=== PATIENT | female | born 1960 | race Caucasian/White ===

== ENCOUNTER 2018-08-28 13:22 | Inpatient (IN) | payer OTHER ==
[2018-08-28] MEDS ORDERED: MAG HYDROX/AL HYDROX/SIMETH 30 ML UDCUP PO ONE (13:52)
[2018-08-28] MEDS ORDERED: HYOSCYAMINE SULFATE 0.125 MG TAB PO ONE (13:52)
[2018-08-28] MEDS ORDERED: LIDOCAINE 2% VISCOUS 15 ML UDCUP PO ONE (13:52)
--- NOTE | 2018-08-28 13:52 | EDPHY ---
H & P Stated Complaint: abd pain Time Seen by Provider: 08/28/18 13:34 HPI/ROS: CHIEF COMPLAINT: Abdominal pain, nausea HISTORY OF PRESENT ILLNESS: 58-year-old female presents with upper abdominal pain and nausea. Yesterday while eating, she developed severe epigastric pain, associated with nausea. The pain waxed and waned and radiated to the back. The pain lasted approximately 5 min and then completely resolved. Onset of recurrent severe pain 1 hr ago, now resolved. No other assoc sx and no alleviating factors. No prior known history of gallstones and no peptic ulcer disease. REVIEW OF SYSTEMS: complete 10 point ROS reviewed and is negative except for the noted elements in the HPI - Personal History Current Tetanus Diphtheria and Acellular Pertussis (TDAP): Yes - Medical/Surgical History Hx Asthma: No Hx Chronic Respiratory Disease: No Hx Diabetes: No Hx Cardiac Disease: No Hx Renal Disease: No Hx Cirrhosis: No Hx Alcoholism: No Hx HIV/AIDS: No Hx Splenectomy or Spleen Trauma: No Other PMH: R foot lymphedema, depression, seizures - Social History Smoking Status: Never smoked Alcohol Use: Occasionally Drug Use: None - Physical Exam Exam: General Appearance: Alert, pleasant Eyes: Pupils equal and round, no conjunctival pallor or injection ENT, Mouth: Mucous membranes moist Neck: Normal inspection Respiratory: Lungs are clear to auscultation Cardiovascular: Regular rate and rhythm Gastrointestinal: Abdomen is soft, epigastric tenderness, no peritoneal signs Neurological: A&O, nonfocal, normal gait Skin: Warm and dry Extremities: Normal inspection Psychiatric: Mood and affect normal Constitutional: Initial Vital Signs Temperature (C) 36.6 C 08/28/18 13:37 Heart Rate 63 08/28/18 13:37 Respiratory Rate 16 08/28/18 13:37 Blood Pressure 104/81 H 08/28/18 13:37 O2 Sat (%) 96 08/28/18 13:37 O2 Delivery Mode Room Air Allergies/Adverse Reactions: Penicillins Allergy (Verified 08/29/18 10:17) Hives Home Medications: Medication Instructions Recorded Phenytoin Sodium Extended 200 mg PO DAILY 08/28/18 [Dilantin (*)] SUMAtriptan [Imitrex 25 MG (*)] 25 mg PO Q2H PRN 08/28/18 Venlafaxine Xr [Effexor Xr 75MG 75 mg PO DAILY 08/28/18 (*)] Medical Decision Making - Diagnostics Imaging: Discussed imaging studies w/ call or contact centre manager Radiologist ED Course/Re-evaluation: This patient presents with recurrent epigastric pain and nausea, most concerning for biliary colic. Labs and right upper quadrant ultrasound ordered. Sono reveals multiple gallstones, including a stone in the neck of the gallbladder and a distal common bile duct stone. Results discussed with the patient. She currently has minimal discomfort and no nausea. No evidence of cholecystitis. Dr. Brannon was consulted for ERCP. Dr. Pavon was consulted as well. The hospitalist service was consulted for admission. Differential Diagnosis: Differential diagnosis includes though it is not limited to appendicitis, cholecystitis, diverticulitis, pyelonephritis, bowel perforation, small bowel obstruction. - Data Points Laboratory Results: Laboratory Results 08/28/18 13:30 08/28/18 13:30 Medications Given: Acetaminophen (Tylenol) 650 mg PO Q4HRS PRN PRN Reason: Pain, Mild/Fever, Can Take PO Stop: 02/24/19 15:13 Last Admin: 08/31/18 21:20 Dose: 650 mg Enoxaparin Sodium (Lovenox) 40 mg SC DAILY [facility] Stop: 02/27/19 08:59 Last Admin: 08/31/18 08:44 Dose: 40 mg Hydromorphone HCl (Dilaudid Slabber) 0 mg IV PRN PRN; Protocol PRN Reason: Pain, Severe Unable to Take PO Stop: 09/09/18 15:43 Last Admin: 08/31/18 18:54 Dose: 6 mg Levofloxacin/Dextrose (Levaquin 750 Mg (Premix)) 150 mls @ 100 mls/hr IV DAILY ANGIE PRN Reason: Protocol Stop: 09/28/18 08:59 Last Admin: 08/31/18 08:54 Dose: 150 mls Metronidazole/Sodium Chloride (Flagyl 500 Mg (Premix)) 100 mls @ 100 mls/hr IV Q8H ANGIE PRN Reason: Protocol Stop: 09/28/18 19:59 Last Admin: 08/31/18 19:20 Dose: 100 mls Potassium Chloride/Dextrose/Sod Cl (D5w 1/2 Ns W/ 20 Kcl/L) 1,000 mls @ 75 mls/ hr IV CONT ANGIE Stop: 02/26/19 08:14 Last Admin: 08/31/18 18:20 Dose: 1,000 mls Ondansetron HCl (Zofran) 4 mg IVP Q4HRS PRN PRN Reason: Nausea/Vomiting, Can't Take PO Stop: 02/24/19 15:13 Last Admin: 08/31/18 19:19 Dose: 4 mg Ondansetron HCl (Zofran Odt) 4 mg PO Q4HRS PRN PRN Reason: Nausea/Vomiting, Use 1st Stop: 02/24/19 15:13 Last Admin: 08/30/18 03:57 Dose: 4 mg Oxycodone HCl (Oxycodone Ir) 5 - 10 mg PO Q3HRS PRN PRN Reason: Pain, Severe Able to Take PO Stop: 09/09/18 08:51 Last Admin: 08/30/18 10:39 Dose: 5 mg Pantoprazole Sodium (Protonix) 40 mg PO BID [facility] Stop: 02/27/19 20:59 Last Admin: 08/31/18 21:11 Dose: 40 mg Phenytoin Sodium (Dilantin) 200 mg PO DAILY [facility] Stop: 02/25/19 08:59 Last Admin: 08/31/18 08:45 Dose: 200 mg Senna/Docusate Sodium (Senokot-S) 1 - 2 tab PO BID ANGIE PRN Reason: Protocol Stop: 02/26/19 20:59 Last Admin: 08/31/18 21:12 Dose: 2 tab Venlafaxine HCl (Effexor Xr) 75 mg PO DAILY [facility] Stop: 02/25/19 08:59 Last Admin: 08/31/18 08:45 Dose: 75 mg Discontinued Medications Al Hydroxide/Mg Hydroxide (Maalox Susp) 30 ml PO ONCE ONE Stop: 08/28/18 13:53 Last Admin: 08/28/18 14:33 Dose: 30 ml Bupivacaine HCl (Sensorcaine 0.25% Sdv) Confirm Administered Dose 30 ml .ROUTE .STK-MED ONE Stop: 08/29/18 09:41 Last Admin: 08/29/18 13:11 Dose: 30 ml Epinephrine HCl (Epinephrine) Confirm Administered Dose 1 mg .ROUTE .STK-MED ONE Stop: 08/29/18 09:41 Last Admin: 08/29/18 13:10 Dose: 0.15 mg Fentanyl (Sublimaze) 25 - 100 mcg IVP Q5M PRN PRN Reason: PACU, IMMEDIATE Pain control Stop: 08/29/18 15:04 Last Admin: 08/29/18 15:09 Dose: 25 mcg Hydromorphone HCl (Dilaudid) 0.2 mg IVP Q4 PRN PRN Reason: Pain, Severe Unable to Take PO Stop: 09/07/18 15:16 Last Admin: 08/30/18 06:19 Dose: 0.2 mg Hydromorphone HCl (Dilaudid) 0.5 - 1 mg IVP Q2HRS PRN PRN Reason: Pain, Severe Stop: 09/09/18 08:51 Last Admin: 08/30/18 15:41 Dose: 1 mg Hyoscyamine Sulfate (Levsin, Hyomax-Sl) 0.25 mg PO ONCE ONE Stop: 08/28/18 13:53 Last Admin: 08/28/18 14:33 Dose: 0.25 mg Sodium Chloride (Ns) 1,000 mls @ 125 mls/hr IV CONT ANGIE Stop: 02/24/19 15:59 Last Admin: 08/29/18 00:38 Dose: 1,000 mls Metronidazole/Sodium Chloride (Flagyl 500 Mg (Premix)) 100 mls @ 100 mls/hr IV Q8HRS ANGIE PRN Reason: Protocol Stop: 09/28/18 08:44 Last Admin: 08/29/18 19:24 Dose: Not Given Sodium Chloride (Ns) 1,000 mls @ 3,000 mls/hr IV ONCE ONE Stop: 08/29/18 08:51 Last Admin: 08/29/18 08:45 Dose: 1,000 mls Lactated Ringer's (Lr) 1,000 mls @ 0 mls/hr IV ONCE ONE PRN Reason: As Directed Stop: 08/29/18 10:45 Last Admin: 08/29/18 10:52 Dose: 1,000 mls Iopamidol (Isovue-M 300) Confirm Administered Dose 15 ml .ROUTE .STK-MED ONE Stop: 08/29/18 09:41 Last Admin: 08/29/18 13:28 Dose: Not Given Lidocaine (Lidocaine 2% Viscous) 15 ml PO ONCE ONE Stop: 08/28/18 13:53 Last Admin: 08/28/18 14:33 Dose: 15 ml Ondansetron HCl (Zofran) 2 - 4 mg IVP Q10M PRN PRN Reason: PACU, Nausea/Vomiting Stop: 08/29/18 15:04 Last Admin: 08/29/18 14:12 Dose: 4 mg Pantoprazole Sodium (Protonix) 40 mg IVP BID ANGIE Stop: 02/24/19 20:59 Last Admin: 08/31/18 08:26 Dose: 40 mg Promethazine HCl (Phenergan) 6.25 - 12.5 mg IVP Q5M PRN PRN Reason: PACUNausea/Vomiting, Unable PO Stop: 08/29/18 15:04 Last Admin: 08/29/18 14:25 Dose: 6.25 mg Departure - Departure Disposition: Home, Routine, Self-Care Clinical Impression: Common bile duct stone Condition: Fair
[2018-08-28 14:01] LABS: PLATELET COUNT 296 10^3/uL (150-400)
[2018-08-28] MEDS ORDERED: MAG HYDROX/AL HYDROX/SIMETH 30 ML UDCUP PO PRN (15:18)
--- NOTE | 2018-08-28 16:07 | PDGENHP ---
<Arabella Salomon - Last Filed: 08/28/18 16:50> History and Physical - Chief Complaint Epigastric pain - History of Present Illness This is a 58 y/o female with history of depression and seizures presenting with severe abdominal pain and nausea. Onset was yesterday. It is episodic in its presentation. Yesterday evening, she was eating carrots with ranch dressing when she suddenly experienced severe epigastric pain that radiated to her back. She was also nauseous, no vomiting. Pain was described as throbbing. It resolved within 5 minutes. Today, she had another episode this time it lasted approximately 10 minutes with nausea and dry heaving. This too then resolved. Denies chest pains, shortness of breath, dysuria, diarrhea, constipation. Abdominal ultrasound reveal cholelithiasis with stones at the neck of the gallbladder measuring 8.7 mm, within the gallbladder, and at the distal aspect of the common bile duct near pancreatic head measuring 5 mm. She is being admitted for further diagnostic work-up. Past Medical/Surgical History 1. Right foot lymphedema (reports having since she was a child) 2. Depression 3. Seizures (last event was ~10-12 years ago) Social 1. , lives in [place] 2. 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 Denies tobacco or illicit drug use. Rarely drinks alcohol. 4. Diet consists of: hardboiled eggs, salad with chicken, "tons" of carrots with ranch dressing and a bag of low-salt popcorn. She also has 4 cups of coffee/day. History Information - Allergies/Home Medication List Allergies/Adverse Reactions: Penicillins Allergy (Verified 08/28/18 15:21) Hives Home Medications: Phenytoin Sodium Extended [Dilantin (*)] 200 mg PO DAILY 08/28/18 [Last Taken ] SUMAtriptan [Imitrex 25 MG (*)] 25 mg PO Q2H PRN 08/28/18 [Last Taken 3 Weeks Ago ~08/07/18] Venlafaxine Xr [Effexor Xr 75MG (*)] 75 mg PO DAILY 08/28/18 [Last Taken ] I have personally reviewed and updated: family history, medical history, social history, surgical history Past Medical History: See HPI list - Surgical History Additional surgical history: See HPI list - Family History Positive for: non-pertinent - Social History Smoking Status: Never smoked Alcohol Use: Rarely Drug Use: None Review of Systems Review of Systems: ROS: 10pt was reviewed & negative except for what was stated in HPI & below Constitutional: Reports: malaise (Reports nausea for 5 days straight last week) EENMT: Reports: no symptoms Cardiac: Reports: no symptoms Respiratory: Reports: no symptoms Gastrointestinal: Reports: abdominal pain, nausea Genitourinary: Reports: no symptoms Muscolosketal: Reports: back pain Skin: Reports: no symptoms Neurological: Reports: depressed (Medicated) Hematologic/Lymphatic: Reports: no symptoms Immunologic/Allergy: Reports: other (See allergy list) Physical Exam Physical Exam: Lab data and imaging reviewed Temp Pulse Resp BP Pulse Ox 37 C 65 16 106/71 98 08/28/18 16:00 08/28/18 16:00 08/28/18 16:00 08/28/18 16:00 08/28/18 16:00 Constitutional: no apparent distress, appears nourished, not in pain Eyes: PERRL, anicteric sclera, EOMI Ears, Nose, Mouth, Throat: moist mucous membranes, hearing normal, ears appear normal, no oral mucosal ulcers Cardiovascular: regular rate and rhythym, no murmur, rub, or gallop, No edema Peripheral Pulses: 2+: dorsalis-pedis (R) (Radial 2+), dorsalis-pedis (L) ( Radial 2+) Respiratory: no respiratory distress, no rales or rhonchi, clear to auscultation Gastrointestinal: normoactive bowel sounds, soft, non-tender abdomen, no palpable masses Genitourinary: no bladder fullness, no bladder tenderness Skin: warm, normal color, no rashes or abrasions, no fluctuance, no induration, No mottled Musculoskeletal: full muscle strength, no muscle tenderness, normal joint ROM, no joint effusions Neurologic: AAOx3, sensation intact bilaterally, CN II-XII Intact Psychiatric: interacting appropriately, not anxious, not encephalopathic, thought process linear Lymph, Heme, Immunologic: no cervical LAD, no supraclavicular LAD Lab Data & Imaging Review 08/28/18 13:30 08/28/18 13:30 WBC 4.64 10^3/uL (3.80-9.50) 08/28/18 13:30 RBC 4.81 10^6/uL (4.18-5.33) 08/28/18 13:30 Hgb 15.3 g/dL (12.6-16.3) 08/28/18 13:30 Hct 43.6 % (38.0-47.0) 08/28/18 13:30 MCV 90.6 fL (81.5-99.8) 08/28/18 13:30 MCH 31.8 pg (27.9-34.1) 08/28/18 13: MCHC 35.1 g/dL (32.4-36.7) 08/28/18 13: RDW 11.8 % (11.5-15.2) 08/28/18 13: Plt Count 296 10^3/uL (150-400) 08/28/18 13: MPV 9.0 fL (8.7-11.7) 08/28/18 13:30 Neut % (Auto) 50.6 % (39.3-74.2) 08/28/18 13:30 Lymph % (Auto) 41.4 % (15.0-45.0) 08/28/18 13:30 [place] % (Auto) 6.0 % (4.5-13.0) 08/28/18 13:30 Eos % (Auto) 0.9 % (0.6-7.6) 08/28/18 13: Baso % (Auto) 0.9 % (0.3-1.7) 08/28/18 13: Nucleat RBC Rel Count 0.0 % (0.0-0.2) 08/28/18 13:30 Absolute Neuts (auto) 2.35 10^3/uL (1.70-6.50) 08/28/18 13:30 Absolute Lymphs (auto) 1.92 10^3/uL (1.00-3.00) 08/28/18 13:30 Absolute Monos (auto) 0.28 10^3/uL (0.30-0.80) L 08/28/18 13:30 Absolute Eos (auto) 0.04 10^3/uL (0.03-0.40) 08/28/18 13:30 Absolute Basos (auto) 0.04 10^3/uL (0.02-0.10) 08/28/18 13:30 Absolute Nucleated RBC 0.00 10^3/uL (0-0.01) 08/28/18 13:30 Immature Gran % 0.2 % (0.0-1.1) 08/28/18 13:30 Immature Gran # 0.01 10^3/uL (0.00-0.10) 08/28/18 13:30 Sodium 139 mEq/L (135-145) 08/28/18 13:30 Potassium 4.4 mEq/L (3.5-5.2) 08/28/18 13:30 Chloride 104 mEq/L (97-110) 08/28/18 13:30 Carbon Dioxide 26 mEq/l (22-31) 08/28/18 13:30 Anion Gap 9 mEq/L (6-14) 08/28/18 13:30 BUN 14 mg/dL (7-23) 08/28/18 13:30 Creatinine 0.6 mg/dL (0.6-1.0) 08/28/18 13:30 Estimated GFR > 60 08/28/18 13:30 Glucose 101 mg/dL (70-100) H 08/28/18 13:30 Calcium 10.8 mg/dL (8.5-10.4) H 08/28/18 13:30 Phosphorus 3.4 mg/dL (2.5-4.5) 08/28/18 13:30 Total Bilirubin 0.3 mg/dL (0.1-1.4) 08/28/18 13:30 Conjugated Bilirubin 0.2 mg/dL (0.0-0.5) 08/28/18 13:30 Unconjugated Bilirubin 0.1 mg/dL (0.0-1.1) 08/28/18 13:30 AST 63 IU/L (14-46) H 08/28/18 13:30 ALT 47 IU/L (9-52) 08/28/18 13:30 Alkaline Phosphatase 108 IU/L (38-126) 08/28/18 13:30 Total Protein 8.1 g/dL (6.3-8.2) 08/28/18 13:30 Albumin 5.0 g/dL (3.5-5.0) 08/28/18 13:30 Lipase 78 IU/L (23-300) 08/28/18 13:30 Assessment & Plan Plan: This is a 58 y/o female presenting with acute abdominal pain and nausea for the last 2 days. Subsequently, she has gallstones. 1. Cholelithiasis: AST/ALT moderately elevated 63/47 -GI consulted and aware: Dr. Brannon to evaluate pt -Manage pain IVP/PO PRN -Manage nausea with anti-emetics PRN -IVF -Protonix BID IVP -Will check CBC/CMP tomorrow -NPO at midnight tonight for possible intervention tomorrow 2. Depression: this is stable. She reports she notices a difference when she doesn't take Effexor. She may continue to take Effexor, however would wait to give until after procedure tomorrow. 3. Seizures: last reported seizure was approximately 10-12 years ago. She may continue phenytoin, however would wait to give until after procedure tomorrow. 4. Diet: counseled pt on proper diet that should involve fresh fruits and vegetables, whole grains, lean meat/poultry/fish and low-fat dairy products. She agreed and reports her daily evening ritual of carrots and ranch and a bag of popcorn was more out of habit and "comfort foods." She also reports having a stressful job and we discussed possible therapeutic ways to manage that stress besides use of food. Diet: Regular, NPO at midnight tonight VTE ppx: SCDs Code: Full Dispo: Admit to inpatient <Mason Magdaleno - Last Filed: 08/28/18 21:11> History and Physical - History of Present Illness Review of Systems Review of Systems: Physical Exam Physical Exam: Temp Pulse Resp BP Pulse Ox 36.4 C 58 L 18 88/67 L 95 08/28/18 19:34 08/28/18 19:34 08/28/18 19:34 08/28/18 19:34 08/28/18 19:34 Lab Data & Imaging Review 08/28/18 13:30 08/28/18 13:30 WBC 4.64 10^3/uL (3.80-9.50) 08/28/18 13:30 RBC 4.81 10^6/uL (4.18-5.33) 08/28/18 13:30 Hgb 15.3 g/dL (12.6-16.3) 08/28/18 13:30 Hct 43.6 % (38.0-47.0) 08/28/18 13:30 MCV 90.6 fL (81.5-99.8) 08/28/18 13:30 MCH 31.8 pg (27.9-34.1) 08/28/18 13:30 MCHC 35.1 g/dL (32.4-36.7) 08/28/18 13:30 RDW 11.8 % (11.5-15.2) 08/28/18 13:30 Plt Count 296 10^3/uL (150-400) 08/28/18 13:30 MPV 9.0 fL (8.7-11.7) 08/28/18 13:30 Neut % (Auto) 50.6 % (39.3-74.2) 08/28/18 13:30 Lymph % (Auto) 41.4 % (15.0-45.0) 08/28/18 13:30 [place] % (Auto) 6.0 % (4.5-13.0) 08/28/18 13:30 Eos % (Auto) 0.9 % (0.6-7.6) 08/28/18 13:30 Baso % (Auto) 0.9 % (0.3-1.7) 08/28/18 13:30 Nucleat RBC Rel Count 0.0 % (0.0-0.2) 08/28/18 13:30 Absolute Neuts (auto) 2.35 10^3/uL (1.70-6.50) 08/28/18 13:30 Absolute Lymphs (auto) 1.92 10^3/uL (1.00-3.00) 08/28/18 13:30 Absolute Monos (auto) 0.28 10^3/uL (0.30-0.80) L 08/28/18 13:30 Absolute Eos (auto) 0.04 10^3/uL (0.03-0.40) 08/28/18 13:30 Absolute Basos (auto) 0.04 10^3/uL (0.02-0.10) 08/28/18 13:30 Absolute Nucleated RBC 0.00 10^3/uL (0-0.01) 08/28/18 13:30 Immature Gran % 0.2 % (0.0-1.1) 08/28/18 13:30 Immature Gran # 0.01 10^3/uL (0.00-0.10) 08/28/18 13:30 Sodium 139 mEq/L (135-145) 08/28/18 13:30 Potassium 4.4 mEq/L (3.5-5.2) 08/28/18 13:30 Chloride 104 mEq/L (97-110) 08/28/18 13:30 Carbon Dioxide 26 mEq/l (22-31) 08/28/18 13:30 Anion Gap 9 mEq/L (6-14) 08/28/18 13:30 BUN 14 mg/dL (7-23) 08/28/18 13:30 Creatinine 0.6 mg/dL (0.6-1.0) 08/28/18 13:30 Estimated GFR > 60 08/28/18 13:30 Glucose 101 mg/dL (70-100) H 08/28/18 13:30 Calcium 10.8 mg/dL (8.5-10.4) H 08/28/18 13:30 Phosphorus 3.4 mg/dL (2.5-4.5) 08/28/18 13:30 Total Bilirubin 0.3 mg/dL (0.1-1.4) 08/28/18 13:30 Conjugated Bilirubin 0.2 mg/dL (0.0-0.5) 08/28/18 13:30 Unconjugated Bilirubin 0.1 mg/dL (0.0-1.1) 08/28/18 13:30 AST 63 IU/L (14-46) H 08/28/18 13:30 ALT 47 IU/L (9-52) 08/28/18 13:30 Alkaline Phosphatase 108 IU/L (38-126) 08/28/18 13:30 Total Protein 8.1 g/dL (6.3-8.2) 08/28/18 13:30 Albumin 5.0 g/dL (3.5-5.0) 08/28/18 13:30 Lipase 78 IU/L (23-300) 08/28/18 13:30 Assessment & Plan Assessment: Common bile duct stone (Acute) patient is a 58 year old healthy female who presented with acute onset of epigastric abdominal pain. Patient states that she has had on and off abdominal discomfort for about the last week. She saw her primary care physician ordered some labs all of which were unremarkable. Today she was eating lunch and right after lunch had acute onset of severe epigastric pain. She did not have any associated nausea or vomiting. I reviewed the ultrasound today of her abdomen which showed multiple stones in her gallbladder at the neck of her gallbladder and a 5 mm stone at her common bile duct. I discussed the case with the precision machining instructor and surgeon who will perform an ERCP tomorrow morning followed by laparoscopic cholecystectomy. Plan to make the patient NPO at midnight hydrate and then to OR in a.m.. On examination she has some diffuse tenderness to palpation in her abdomen otherwise examination is essentially unremarkable. Other issues per nurse practitioner Conchita Magdaleno MD
--- NOTE | 2018-08-28 16:42 | GCON ---
REFERRING PHYSICIAN: Arabella Salomon CHIEF COMPLAINT: Cholelithiasis, choledocholithiasis. HISTORY OF PRESENT ILLNESS: I have been asked to see this 58-year-old woman in consultation from Conchita Salomon for evaluation for biliary colic and choledocholithiasis. This very pleasant 58-year-old woman has no significant medical history. She does have a remote history of seizure disorder on Dila ntin and also takes Effexor for depression. She does have a history of migraines for which she takes Imitrex as needed. She was in her usual state of good health until last week. She was feeling some what nauseous Saturday through Saturday and over the weekend, she felt well. She did follow up with her primary care physician on Saturday and had blood work. She was scheduled to see her primary care physi colton next week. Last evening she ate some carrots and ranch and subsequently developed epigastric pa in with some associated nausea. The pain subsided in less than 5 minutes. The following morning, connie kay woke up. She had breakfast. She had no difficulties. She went to work. She went on a walk with a colleague at work at the lunch hour. Upon returning to work, she had sudden onset of severe epigas tric pain with radiation through to her back. The pain was extremely severe. 911 was called. The p ain resolved by the time the EMT arrived. She did present to the emergency department. She had no f loni or chills. She was, however, having dry heaves during the attack. In the emergency department she had laboratory with the finding of a normal hemoglobin of 15.3, hematocrit 43.6, white count of 4.61, platelets of 296,000. Serum chemistries revealed an AST of 63 with ALT of 47 and normal total bilirubin of 0.3. Abdominal ultrasound/right upper quadrant ultrasound revealed cholelithiasis with stones in the neck of the gallbladder. There was also noted to be a stone in the distal common bile duct near the pancreatic head. The bile duct did not seem significantly dilated. The patient has no t had recurrent pain in the emergency department. She was seen by surgery for consideration of stepan cystectomy. I was asked to see patient for further evaluation. PAST MEDICAL HISTORY: Remarkable for right lower extremity foot lymphedema, a history of seizure dis order, depression, migraines. PAST SURGICAL HISTORY: Negative. MEDICATIONS: Prior to admission included Dilantin, Effexor, and Imitrex as needed. ALLERGIES: Penicillin. SOCIAL HISTORY: Nonsmoker. Drinks rare alcohol. FAMILY HISTORY: Negative as it pertains to chief complaint. REVIEW OF SYSTEMS: It is negative for 10 systems. PHYSICAL EXAM: VITAL SIGNS: 106/71, heart rate 65, respiratory rate 16, 98% sat on room air, 37 degr ees Celsius is the temperature. GENERAL: The patient is a very pleasant woman lying in the stretcher , in no acute distress. HEENT: Normocephalic, atraumatic. EOMI. NECK: Supple. No cervical adeno anthony. No thyromegaly. Mucous membranes moist. LUNGS: Clear. CARDIAC: Normal S1, S2 without murmur. ABDOMEN: Soft, normal bowel sounds. No hepatosplenomegaly. Nontender. EXTREMITIES: Without clubbing, cyanosis with trace edema in the right foot. SKIN: War m, dry, intact. NEURO: Nonfocal. PSYCH: Alert, oriented x3 with normal affect. LABORATORY DATA: As above. IMPRESSION: A 58-year-old woman with cholelithiasis and choledocholithiasis seen on ultrasound. Pat ient with mild elevation of ALT. RECOMMENDATIONS: 1. Patient to be admitted to the hospital. Recommend clear liquid diet. N.p.o. after midnight. Wi ll proceed with ERCP for evaluation and sphincterotomy stone extraction if choledocholithiasis presen t. 2. Agree with surgical evaluation and cholecystectomy at some point after ERCP. We will follow with you. Thank you for allowing us to participate in the care of this patient. /[id number]/MODL
[2018-08-28] MEDS: NS 1,000 ML IV SCH (17:02)
--- NOTE | 2018-08-28 19:17 | GCON ---
DATE OF CONSULTATION: 08/28/2018 CHIEF COMPLAINT: Abdominal pain. HISTORY OF PRESENT ILLNESS: This is a 58-year-old, otherwise healthy female, who presents to the [facility] department via EMS. Briefly, the patient states that for the last week or so, she has had gopi e abdominal discomfort, and saw her primary care provider last week, who subsequently ordered labs saturday. All of those labs were within normal limits. The patient states that the abdominal pain was somewhat colicky in nature, but for the most part, really resolved over the weekend and she felt well. She was at work today, had lunch, and pretty much right after lunch, had some fairly excruciat ing epigastric abdominal pain which she describes as boring, stabbing, radiating to the left upper qu adrant, 10/10 in intensity. She was subsequently doubled over in her office and had to call EMS for transport here. Subsequently, upon EMS arrival, she was somewhat doing better, but still having a fa ir amount of pain on arrival here. She was medicated and is actually feeling fairly well now. She d enies having any associated fevers or chills, nausea, or vomiting. She has had a couple episodes lik e this in the past, but nothing to this nature. PAST MEDICAL HISTORY: Consistent for seizure disorder, depression and lymphedema. PAST SURGICAL HISTORY: None. CURRENT MEDICATIONS: Phenytoin, Imitrex and Effexor. FAMILY HISTORY: Noncontributory. ALLERGIES: Penicillin. REVIEW OF SYSTEMS: A full 10-point review was performed. PHYSICAL EXAMINATION: VITAL SIGNS: Temperature 36.6, blood pressure 104/81, heart rate is 63, and s he is 96% on room air. CONSTITUTIONAL: She is in currently no distress and appears comfortable. EY ES: Her pupils are equal, round, and reactive to light and accommodation. She has anicteric sclerae . Extraocular movements are intact. EARS, NOSE, MOUTH, THROAT: She has moist mucous membranes. He r hearing is normal. She has normal dentition. CARDIOVASCULAR: She has a regular rate and rhythm w ith no murmurs, rubs, or gallops. RESPIRATORY: She has no respiratory distress, rales or rhonchi, a nd she is otherwise clear to auscultation bilaterally. ABDOMEN: Soft, nondistended, nontender. She has a negative Carrasco sign. No previous scars. SKIN: Warm, normal color. No rashes or abrasions. MUSCULOSKELETAL: Full strength. No muscular tenderness with normal joint range of motion. NEUROL OGIC: She is alert and oriented x3. Her cranial nerves 2-12 are intact. She has no weakness, no nu mbness. PSYCH: She is interacting appropriately. She is not anxious or encephalopathic. LYMPH/HEM E/IMMUNOLOGIC: She has no cervical, groin or supraclavicular lymphadenopathy appreciated. LABORATORIES: Reviewed. White blood cell count normal at 4, H and H stable at 15 and 43, platelets normal at 296. Chemistry is largely unremarkable with the exception of elevated glucose at 101, a ca lcium of 10.8, an AST slightly elevated at 63, an ALT normal at 47, alkaline phosphatase is normal at 108. Lipase is normal at 78. Bilirubins are normal. IMAGING: Includes an abdominal ultrasound, the images of which were personally reviewed, which show cholelithiasis, normal gallbladder wall, no pericholecystic fluid, and a 5 mm stone lodged within a 6 mm cystic duct. ASSESSMENT AND PLAN: 58-year-old female with cholelithiasis, choledocholithiasis. Plan will be admi ssion. We will have consultation from GI, subsequently ERCP with laparoscopic cholecystectomy to [facility]. Plan of care discussed with the patient and the ED attending. We will plan for medical admissi on, ERCP, followed by a laparoscopic cholecystectomy, the risks and benefits of which were discussed with the patient. /[id number]/MODL
--- NOTE | 2018-08-28 19:24 | SOAPPROG ---
LUCINDA Progress Note Assessment/Plan: Assessment: Discussed with [place]. - plan for tomorrow is ERCP 11AM, Lap stepan TO FOLLOW under same anesthesia. Plan: 08/28/18 19:23 Objective: Vital Signs Temp Pulse Resp BP Pulse Ox 37 C 65 16 106/71 98 08/28/18 16:00 08/28/18 16:00 08/28/18 16:00 08/28/18 16:00 08/28/18 16:00 08/27/18 08/28/18 08/29/18 05:59 05:59 05:59 Intake Total 625 Balance 625 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
[2018-08-28] MEDS: PANTOPRAZOLE SODIUM 40 MG VIAL IVP SCH (21:25)
[2018-08-29] MEDS: NS 1,000 ML IV SCH (00:38)
[2018-08-29] MEDS ORDERED: NS 1,000 ML IV ONE (08:32)
--- NOTE | 2018-08-29 08:37 | HOSPPROG ---
Hospitalist Progress Note Assessment/Plan: # cholelithiasis/choledocholithiasis - agree with ERCP followed by cholecystectomy today # hypotension (97/60 on my check) - concerning, but no fever/leukocytosis to indicate sepsis - NS 1L bolus - start empiric abx for now (levaquin/flagyl) # seizure d/o - cont phenytoin # depression - effexor Subjective: still mild epigastric pain Objective: Vital Signs Temp Pulse Resp BP Pulse Ox 36.5 C 62 16 86/62 L 93 08/29/18 08:00 08/29/18 08:00 08/29/18 08:00 08/29/18 08:00 08/29/18 08:00 Laboratory Results 08/29/18 05:30 08/29/18 05:30 08/28/18 08/29/18 08/30/18 05:59 05:59 05:59 Intake Total 1940 Balance 1940 chart reviewed US reviewed - Physical Exam Constitutional: no apparent distress, appears nourished Eyes: anicteric sclera Cardiovascular: regular rate and rhythym, no murmur, rub, or gallop Respiratory: no respiratory distress, no rales or rhonchi, clear to auscultation Gastrointestinal: other (mild epigastric discomfort), No hepatosplenomegally, No rebound, No distension Neurologic: AAOx3 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
[2018-08-29] MEDS: PANTOPRAZOLE SODIUM 40 MG VIAL IVP SCH ×2 (08:48→21:32)
[2018-08-29] MEDS ORDERED: IOPAMIDOL (ISOVUE-M 300) 15 ML VIAL ONE (09:40)
[2018-08-29] MEDS ORDERED: BUPIVACAINE 0.25% 30 ML SDV ONE (09:40)
[2018-08-29] MEDS ORDERED: EPINEPHrine 1 MG/ML INJ ONE (09:40)
--- NOTE | 2018-08-29 09:50 | PDHPUP ---
History & Physical Update H&P update statement: This history and physical update is based on an assessment of the patient which was completed after admission or registration (within 24 hours), but prior to the surgery/procedure. H&P update: H&P reviewed & patient examined, no change in patient's condition since H&P completed
[2018-08-29] MEDS ORDERED: LR 1,000 ML IV ONE (10:44)
--- NOTE | 2018-08-29 10:48 | PDANEPAE ---
ANE History of Present Illness cholelithiasis s/f ERCP followed by natividad JOLLY Past Medical History - Pulmonary History Hx Oxygen in Use at Home: No Hx Sleep Apnea: No Sleep Apnea Screening Result - Last Documented: Negative - Endocrine History Hx Diabetes: No - Neurological & Psychiatric Hx Hx Neurological and Psychiatric Disorders: Yes Neurological / Psychiatric History Comment: seizure d/o-on meds, 0 Sz x 10+ years. migrains. depression - Chronic Pain History Chronic Pain: No ANE Review of Systems Review of Systems: - Exercise capacity Exercise capacity: >=4 METS ANE Patient History - Allergies Allergies/Adverse Reactions: Penicillins Allergy (Verified 08/29/18 10:17) Hives - Home Medications Home medications: home medication list seen and reviewed Home Medications: Phenytoin Sodium Extended [Dilantin (*)] 200 mg PO DAILY 08/28/18 [Last Taken ] SUMAtriptan [Imitrex 25 MG (*)] 25 mg PO Q2H PRN 08/28/18 [Last Taken 3 Weeks Ago ~08/07/18] Venlafaxine Xr [Effexor Xr 75MG (*)] 75 mg PO DAILY 08/28/18 [Last Taken ] - NPO status NPO Status: no food or drink >8 hours NPO Since - Liquids (Date): 08/29/18 NPO Since - Liquids (Time): 00:00 NPO Since - Solids (Date): 08/29/18 NPO Since - Solids (Time): 00:00 - Anes Hx Anes Hx: no prior problems - Smoking Hx Smoking Status: Never smoked - Alcohol Use Alcohol Use: Rarely - Family Anes Hx Family Anes Hx: none ANE Labs/Vital Signs - Labs Result Diagrams: 08/29/18 05:30 08/29/18 05:30 - Vital Signs Blood Pressure: 89/66 Heart Rate: 59 Respiratory Rate: 16 O2 Sat (%): 97 Height: 162.56 cm Weight: 62.596 kg ANE Physical Exam - Airway Neck exam: FROM Mallampati Score: Class 2 - Pulmonary Pulmonary: no respiratory distress - Cardiovascular Cardiovascular: regular rate and rhythym - ASA Status ASA Status: II ANE Anesthesia Plan Anesthesia Plan: general endotracheal anesthesia
--- NOTE | 2018-08-29 11:18 | PDMN ---
Medical Necessity Medical necessity: Pt meets inpt criteria per MD order and [facility] [id number], Gallbladder or Bile Duct Inflammation or Stone. 58 y/o admitted yesterday w/ severe RUQ abd pain admitted w/cholelithiasis and choledocholithiasis: Abd US shows stones at the neck of GB, withing GB, and at distal aspect of common bile duct near pancreatic head. GI and surg consults, ERCP today followed by lap stepan. Persistent hypotension this AM w/SBP in 80's. Est LOS>2MN for ongoing eval/management of above.
[2018-08-29] MEDS ORDERED: PROPOFOL/EMULSION 500 MG/50 ML BOTTLE IV ONE (11:28)
[2018-08-29] MEDS ORDERED: ROCURONIUM 100 MG/10 ML VIAL ONE (11:28)
[2018-08-29] MEDS ORDERED: DEXAMETHASONE 4 MG/ML VIAL ONE ×2 (11:28)
[2018-08-29] MEDS ORDERED: fentaNYL 100 MCG/2 ML INJ ONE ×2 (11:28→14:09)
[2018-08-29] MEDS ORDERED: LIDOCAINE 2% 100 MG/5 ML SYR ONE (11:29)
[2018-08-29] MEDS ORDERED: INDOMETHACIN 50 MG SUPP PR ONE (12:22)
[2018-08-29] MEDS ORDERED: ONDANSETRON 4 MG/2 ML VIAL ONE ×2 (13:32→14:10)
[2018-08-29] MEDS ORDERED: SUGAMMADEX SODIUM 200 MG/2 ML VIAL IVP ONE (13:32)
[2018-08-29] MEDS ORDERED: PROMETHAZINE HCL 25 MG/ML INJ IVP PRN (14:04)
[2018-08-29] MEDS ORDERED: NALOXONE HCL 0.4 MG/ML INJ IVP PRN (14:04)
[2018-08-29] MEDS ORDERED: LABETALOL HCL 5 MG/ML 20 ML MDV IVP PRN (14:04)
[2018-08-29] MEDS ORDERED: METOCLOPRAMIDE 10 MG/2 ML VIAL IVP PRN (14:04)
[2018-08-29] MEDS ORDERED: ALBUTEROL 3 ML DEYVIAL IH PRN (14:04)
[2018-08-29] MEDS ORDERED: LR 500 ML IV PRN (14:04)
[2018-08-29] MEDS ORDERED: DEXAMETHASONE 4 MG/ML VIAL IVP PRN (14:04)
[2018-08-29] MEDS ORDERED: ONDANSETRON 4 MG/2 ML VIAL IVP PRN (14:04)
[2018-08-29] MEDS ORDERED: ACETAMINOPHEN 500 MG TAB PO PRN (14:04)
[2018-08-29] MEDS ORDERED: MEPERIDINE 25 MG/0.5 ML AMP IVP PRN (14:04)
[2018-08-29] MEDS ORDERED: PHENYLEPHRINE HCL 100 MCG/ML SYR IVP PRN (14:04)
[2018-08-29] MEDS ORDERED: oxyCODONE IR 5 MG TAB PO PRN (14:04)
[2018-08-29] MEDS: fentaNYL 100 MCG/2 ML INJ IVP PRN ×3 (14:11→15:09)
[2018-08-29] MEDS ORDERED: PROMETHAZINE HCL 25 MG/ML INJ ONE (14:22)
--- NOTE | 2018-08-29 14:30 | ASMTCMCOM ---
CM Note CM Note Notes: Pt admitted to hospital for abdominal pain, imaging revealed gallstones. She will have an ERCP today, pt is otherwise independent. Anticipate she will dc home when medically stable. CM available for any changes. DC Plan: Independent Date Signed: 08/29/2018 02:29 PM Electronically Signed By:Meryl Mendieta RN
--- NOTE | 2018-08-29 14:43 | POSTOPPROG ---
Post Op Note Date of Operation: 08/29/18 Surgeon: Jose Alfredo Pavon Anesthesiologist: Ashkan Anesthesia: GET(General Endotracheal) Pre-op Diagnosis: Cholecystitis, choledocholithiasis Post-op Diagnosis: same Procedure: lap stepan Findings: critical view, adhesions Inf/Abcess present in the surg proc area at time of surgery?: No EBL: Minimal Specimen(s): GB
--- NOTE | 2018-08-29 15:01 | POSTANESTH ---
Post Anesthetic Evaluation Cardiovascular Status: Normal, Stable Respiratory Status: Normal, Stable, Tx Decrease in SpO2 (mild secondary to surgery/anesthesia) Level of Consciousness/Mental Status: Can Participate in Eval, Mildly Sleepy, Arousable Pain Control: Inadeq, Add Tx Required Nausea/Vomiting Control: Adequate, Prn Tx Ordered Complications Possibly Related to Anesthesia: None Noted
--- NOTE | 2018-08-29 15:17 | GOP ---
DATE OF OPERATION: 08/29/2018 SURGEON: Jose Alfredo Pavon MD SWEATER OPERATOR: None. ANESTHESIA: General endotracheal. ANESTHESIOLOGIST: Jose Luther MD. PREOPERATIVE DIAGNOSIS: 1. Cholecystitis. 2. Choledocholithiasis. POSTOPERATIVE DIAGNOSIS: 1. Cholecystitis. 2. Choledocholithiasis. PROCEDURE PERFORMED: Laparoscopic cholecystectomy. FINDINGS: Critical view obtained. Adhesions and edematous wall consistent with cholecystitis. SPECIMENS: Gallbladder. ESTIMATED BLOOD LOSS: 5 cc. DESCRIPTION OF PROCEDURE: The patient was transported from the endoscopy suite into the operating ro om. Prior to this, risks, benefits, and alternatives were discussed, and the consent was signed. Tiffanie kay was subsequently placed on the OR table in supine position, attached to the anesthesia circuit, caitlyn athing machine, and monitors. After performing a [employer] time-out, her abdomen was prepped and draped in typical sterile fashion. I commenced the procedure by making an infraumbilica l cutdown through her previous scar, through which the Veress needle was passed. I achieved pneumope ritoneum to 15 mmHg, which was well tolerated by the patient. After successful pneumoperitoneum esta blishment, I inserted a 12 mm Visiport through this site. Once successfully in the abdomen, I placed three additional 5 mm trocars, one in the subxiphoid, two in the right upper quadrant, all under dir ect visualization. I identified the gallbladder under the liver edge and successfully retracted it c ranially. Using a combination of electrocautery and blunt dissection at the infundibulum, I identifi ed two and only 2 structures leading toward the gallbladder. Two clips were placed proximally, one d istally. The duct and then the artery was successfully dissected out and clipped and cut. I then to ok the gallbladder off the liver bed using electrocautery. It was placed in an EndoCatch bag and rem starr. My clips were then visualized, noted to be hemostatic and intact. Right upper quadrant was th en irrigated with 500 cc sterile saline, noting clear effluent in the suction canister. Local anesth esia was infiltrated into the port sites which were removed under direct visualization. I evacuated my pneumoperitoneum. My infraumbilical site was closed with an 0 Vicryl stitch noting good fascial r eapproximation. Skin was closed with Monocryl. Dermabond was placed. The patient was then extubate d in the operative suite and taken to the PACU in satisfactory condition. DRAINS: None. COUNTS: All counts were reported as correct x2. /[id number]/MODL
[2018-08-29] MEDS: HYDROmorphONE/DILAUDID 1 MG/ML INJ IVP PRN ×2 (15:37→21:38)
[2018-08-29] MEDS: ONDANSETRON 4 MG/2 ML VIAL IVP PRN ×2 (17:00→21:33)
[2018-08-29] MEDS: VENLAFAXINE XR 75 MG CAP PO SCH (22:06)
[2018-08-29] MEDS: PHENYTOIN SODIUM EXTENDED 100 MG CAP PO SCH (22:06)
[2018-08-30] MEDS: ACETAMINOPHEN 325 MG TAB PO PRN (01:05)
[2018-08-30] MEDS: HYDROmorphONE/DILAUDID 1 MG/ML INJ IVP PRN ×6 (01:46→15:41)
[2018-08-30] MEDS: ONDANSETRON DISINTEGRATING 4 MG TAB PO PRN (03:57)
[2018-08-30] MEDS: ONDANSETRON 4 MG/2 ML VIAL IVP PRN ×3 (06:19→18:13)
[2018-08-30] MEDS ORDERED: PROMETHAZINE HCL 25 MG/ML INJ IVP PRN (08:03)
[2018-08-30] MEDS: VENLAFAXINE XR 75 MG CAP PO SCH (08:31)
[2018-08-30] MEDS: PHENYTOIN SODIUM EXTENDED 100 MG CAP PO SCH (08:32)
[2018-08-30] MEDS: PANTOPRAZOLE SODIUM 40 MG VIAL IVP SCH ×2 (08:37→20:58)
[2018-08-30] MEDS: D5W 1/2 NS W/ 20 KCl/L 1,000 ML IV SCH (08:37)
[2018-08-30] MEDS ORDERED: HYDROCODONE/APAP 5/325 TAB PO PRN (08:52)
--- NOTE | 2018-08-30 10:12 | SOAPPROG ---
SOAP Progress Note Assessment/Plan: Assessment: 58 year old female s/p lap stepan and ERCP for choledocolithiasis More pain today than expected. Differential diagnosis includes pancreatitis based on history and course of stay. Patient is a difficult IV stick resulting in delayed labs for confirmation. Could also be a surgical complication. Hope to get labs. If labs normal, may need to consider HIDA scan to see if leak Plan: Phenergen for breakthrough nausea. Continue clear liquid diet. PO intake only if comfortable. Start D5W 1/2 NS IV. Subjective: continued nausea and central abdominal pain. Patient states she feels worse s/p surgery than she did prior to the procedure. No flatus. Objective: General: Appears tired and weak, laying in bed. no acute distress HENT: Normocephalic, no gross hearing deficits, mucous membranes moist, pupils equal and round Lungs: Clear to auscultation bilaterally, No increased work of breathing Cardiac: Regular rate, no peripheral edema Abdomen: Bowel sounds present, soft. Tender epigastrium Skin: Warm and dry. Incisions clean, dry and intact without evidence of infection Psych: Mood and affect normal Neuro: Grossly intact 08/30/18 10:04 08/30/18 10:41 Objective: Vital Signs Temp Pulse Resp BP Pulse Ox 36.9 C 68 18 101/61 96 08/30/18 08:00 08/30/18 08:00 08/30/18 08:00 08/30/18 08:00 08/30/18 08:00 Laboratory Results 08/29/18 05:30 08/29/18 05:30 08/29/18 08/30/18 08/31/18 05:59 05:59 05:59 Intake Total 1940 2049 Output Total 25 Balance 1940 2024 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
[2018-08-30] MEDS: oxyCODONE IR 5 MG TAB PO PRN (10:39)
--- NOTE | 2018-08-30 10:58 | HOSPPROG ---
Hospitalist Progress Note Assessment/Plan: # post-operative pain - delay in getting labs this am, pending - will f/u on labs and reassess - cont abx (levaquin/flagyl) - cont pain control IV - clears per Dr Mcdonnell # cholelithiasis/choledocholithiasiss/p ERCP and cholecystectomy # hypotension (97/60 on my check) - better today # seizure d/o - cont phenytoin # depression - effexor Subjective: c/o severe RUQ pain today with nausea Objective: Vital Signs Temp Pulse Resp BP Pulse Ox 36.9 C 68 18 101/61 96 08/30/18 08:00 08/30/18 08:00 08/30/18 08:00 08/30/18 08:00 08/30/18 08:00 Laboratory Results 08/29/18 05:30 08/29/18 08/30/18 08/31/18 05:59 05:59 05:59 Intake Total 1940 2049 Output Total 25 Balance 1940 2024 high risk - Physical Exam Constitutional: uncomfortable (moaning in bed) Cardiovascular: regular rate and rhythym, no murmur, rub, or gallop Respiratory: no respiratory distress, no rales or rhonchi, clear to auscultation Gastrointestinal: other (soft, very TTP RUQ) 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
[2018-08-30 11:32] LABS: PLATELET COUNT 218 10^3/uL (150-400)
--- NOTE | 2018-08-30 13:07 | SOAPPROG ---
SOAP Progress Note Assessment/Plan: Assessment: Pancreatitis post ERCP with ES. Elevated WBC but only mildly elevated LFT no e/ o CBD obstruction Plan: Aggressive IVF hydration NPO but ice chips OK Monitor for SOB or fever Pain med Consider CT scan if not better in next 24-48 hours 08/30/18 13:03 08/30/18 13:06 Subjective: CC CBD stone S/p ERCp yesterday now with epi pain and nausea no melena Objective: Vital Signs Temp Pulse Resp BP Pulse Ox 37.1 C 72 18 99/69 L 97 08/30/18 12:35 08/30/18 12:35 08/30/18 12:35 08/30/18 12:35 08/30/18 12:35 Laboratory Results 08/30/18 10:10 08/30/18 10:10 08/29/18 08/30/18 08/31/18 05:59 05:59 05:59 Intake Total 1940 2049 Output Total 25 Balance 1940 2024 Physical Exam - Physical Exam General Appearance: mild distress Respiratory: lungs clear Cardiac/Chest: regular rate, rhythm Abdomen: non-tender, soft 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
[2018-08-30] MEDS ORDERED: MAGNESIUM HYDROXIDE 30 ML UDCUP PO PRN (15:44)
[2018-08-30] MEDS ORDERED: BISACODYL 10 MG SUPP PR PRN (15:44)
[2018-08-30] MEDS ORDERED: POLYETHYLENE GLYCOL 3350 17 GM PKT PO PRN (15:44)
[2018-08-30] MEDS ORDERED: LACTULOSE 20 GM/30 ML UDCUP PO PRN (15:44)
[2018-08-30] MEDS ORDERED: NALOXONE HCL 0.4 MG/ML INJ IVP PRN (15:44)
[2018-08-30] MEDS: HYDROmorphONE/DILAUDID 6 MG/30 ML PCA IV PRN (16:42)
[2018-08-30] MEDS: SENNOSIDES/DOCUSATE SODIUM TAB PO SCH (20:58)
[2018-08-31] MEDS: D5W 1/2 NS W/ 20 KCl/L 1,000 ML IV SCH ×2 (02:17→18:20)
[2018-08-31] MEDS: ONDANSETRON 4 MG/2 ML VIAL IVP PRN ×4 (02:46→19:19)
[2018-08-31] MEDS: HYDROmorphONE/DILAUDID 6 MG/30 ML PCA IV PRN ×2 (04:28→18:54)
[2018-08-31 05:00] LABS: PLATELET COUNT 254 10^3/uL (150-400)
[2018-08-31] MEDS: PANTOPRAZOLE SODIUM 40 MG VIAL IVP SCH (08:26)
[2018-08-31] MEDS: ENOXAPARIN 40 MG/0.4 ML SYR SC SCH (08:44)
[2018-08-31] MEDS: SENNOSIDES/DOCUSATE SODIUM TAB PO SCH ×2 (08:45→21:12)
[2018-08-31] MEDS: VENLAFAXINE XR 75 MG CAP PO SCH (08:45)
[2018-08-31] MEDS: PHENYTOIN SODIUM EXTENDED 100 MG CAP PO SCH (08:45)
--- NOTE | 2018-08-31 09:19 | HOSPPROG ---
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 Objective: Vital Signs Temp Pulse Resp BP Pulse Ox 36.7 C 78 14 99/68 L 92 08/31/18 07:42 08/31/18 07:42 08/31/18 07:42 08/31/18 07:42 08/31/18 07:42 Laboratory Results 08/31/18 04:32 08/31/18 04:32 08/30/18 08/31/18 09/01/18 05:59 05:59 05:59 Intake Total 2049 3551 Output Total 500 Balance 2024 3052 high risk on iv narcotics - Physical Exam Constitutional: uncomfortable (somnolent) Cardiovascular: regular rate and rhythym, no murmur, rub, or gallop Respiratory: no respiratory distress, no rales or rhonchi, clear to auscultation Gastrointestinal: normoactive bowel sounds, other (soft), No guarding, No rebound 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
--- NOTE | 2018-08-31 11:21 | SOAPPROG ---
SOAP Progress Note Assessment/Plan: Assessment: 58 year old female s/p lap stepan and ERCP for choledocolithiasis More comfortable today. Labs confirm diagnosis of pancreatitis, no HIDA needed. Plan: NPO, minimal liquids. Ok to have popsicle Regular ambulation Continue IVF D5W 1/2 NS If continues to progress, plan for discharge sometime between Saturday-Saturday. Subjective: Improved abdominal pain and nausea. Appears more comfortable today and less tired/weak. Objective: General: Appears more comfortable today, upright in bed. no acute distress HENT: Normocephalic, no gross hearing deficits, mucous membranes moist, pupils equal and round Lungs: Clear to auscultation bilaterally, No increased work of breathing Cardiac: Regular rate, no peripheral edema Abdomen: Bowel sounds present, soft, non-distended. Improved epigastric tenderness. Skin: Warm and dry. Incisions clean, dry and intact without evidence of infection Psych: Mood and affect normal Neuro: Grossly intact 08/30/18 10:04 08/30/18 10:41 08/31/18 11:15 Objective: Vital Signs Temp Pulse Resp BP Pulse Ox 36.7 C 90 14 99/67 L 94 08/31/18 09:48 08/31/18 09:48 08/31/18 09:48 08/31/18 09:48 08/31/18 09:48 Laboratory Results 08/31/18 04:32 08/31/18 04:32 08/30/18 08/31/18 09/01/18 05:59 05:59 05:59 Intake Total 2049 355 Output Total 500 Balance 2024 305 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
--- NOTE | 2018-08-31 12:57 | SOAPPROG ---
SOAP Progress Note Assessment/Plan: Assessment: Pancreatitis post ERCP with ES. Elevated WBC but only mildly elevated LFT no e/ o CBD obstruction Plan: Aggressive IVF hydration NPO but ice chips OK Monitor for SOB or fever Pain med Consider CT scan if not better in next 24-48 hours 08/30/18 13:03 08/31/18 12:54 Pancreatitis elevated WBC no fever suspect increased WBC form inflammation not infection. Pt on antibx post ES. plan Continue supportive care Monitor for complications Subjective: CC Pancreatitis Still with pain but better today. C/o nausea not passing gas Objective: Vital Signs Temp Pulse Resp BP Pulse Ox 36.8 C 77 16 94/64 L 94 08/31/18 11:41 08/31/18 11:41 08/31/18 11:41 08/31/18 11:41 08/31/18 11:41 Laboratory Results 08/31/18 04:32 08/31/18 04:32 08/30/18 08/31/18 09/01/18 05:59 05:59 05:59 Intake Total 2049 3552 Output Total 25 500 Balance 2024 3052 Physical Exam - Physical Exam General Appearance: alert Respiratory: lungs clear Cardiac/Chest: regular rate, rhythm Abdomen: soft, distended 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
[2018-08-31] MEDS: PANTOPRAZOLE SODIUM 40 MG TAB PO SCH (21:11)
[2018-08-31] MEDS: ACETAMINOPHEN 325 MG TAB PO PRN (21:20)
[2018-09-01 05:31] LABS: PLATELET COUNT 209 10^3/uL (150-400)
[2018-09-01] MEDS: ACETAMINOPHEN 325 MG TAB PO PRN (07:19)
--- NOTE | 2018-09-01 08:35 | SOAPPROG ---
SOMICK Progress Note Assessment/Plan: Assessment: 58yo F s/p ERCP, lap stepan - VSS, HDS, afebrile - WBC down to 18 today - lipase improved today - abdomen is peat shredder tender in epigastrium - cont NPO c sips, still very nauseated. - pancreatitis is improving, slowly. Plan: 08/28/18 19:23 09/01/18 08:34 Subjective: feels a littler better, still with epigastric pain Objective: Vital Signs Temp Pulse Resp BP Pulse Ox 36.6 C 86 16 94/61 L 90 L 09/01/18 08:00 09/01/18 08:00 09/01/18 08:00 09/01/18 08:00 09/01/18 08:00 Laboratory Results 09/01/18 04:55 09/01/18 04:55 08/31/18 09/01/18 09/02/18 05:59 05:59 05:59 Intake Total 3552 Output Total 500 900 Balance 3052 -900 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
[2018-09-01] MEDS: ENOXAPARIN 40 MG/0.4 ML SYR SC SCH (09:03)
[2018-09-01] MEDS: VENLAFAXINE XR 75 MG CAP PO SCH (09:03)
[2018-09-01] MEDS: PHENYTOIN SODIUM EXTENDED 100 MG CAP PO SCH (09:03)
[2018-09-01] MEDS: PANTOPRAZOLE SODIUM 40 MG TAB PO SCH ×2 (09:03→20:44)
[2018-09-01] MEDS: D5W 1/2 NS W/ 20 KCl/L 1,000 ML IV SCH (09:04)
[2018-09-01] MEDS: SENNOSIDES/DOCUSATE SODIUM TAB PO SCH ×2 (09:04→20:44)
--- NOTE | 2018-09-01 09:15 | ASMTCMCOM ---
CM Note CM Note Notes: CM reviewed pts chart. Pt continues to be NPO and still feeling very nauseated. The plan remains the same. Pt will d/c independent when medically stable. CM available for changes. Plan: Independent Date Signed: 09/01/2018 09:14 AM Electronically Signed By:LESA Everett
--- NOTE | 2018-09-01 09:28 | SOAPPROG ---
SOAP Progress Note Assessment/Plan: Assessment: Pancreatitis post ERCP with ES. Elevated WBC but only mildly elevated LFT no e/ o CBD obstruction Plan: Aggressive IVF hydration NPO but ice chips OK Monitor for SOB or fever Pain med Consider CT scan if not better in next 24-48 hours 08/30/18 13:03 08/31/18 12:54 Pancreatitis elevated WBC no fever suspect increased WBC form inflammation not infection. Pt on antibx post ES. 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, no flatauce Objective: Vital Signs Temp Pulse Resp BP Pulse Ox 36.6 C 86 16 94/61 L 90 L 09/01/18 08:00 09/01/18 08:00 09/01/18 08:00 09/01/18 08:00 09/01/18 08:00 Laboratory Results 09/01/18 04:55 09/01/18 04:55 08/31/18 09/01/18 09/02/18 05:59 05:59 05:59 Intake Total 3552 Output Total 500 900 Balance 3052 -900 Physical Exam - Physical Exam General Appearance: no apparent distress Respiratory: lungs clear Cardiac/Chest: regular rate, rhythm Abdomen: soft, 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
[2018-09-01] MEDS ORDERED: NS 250 ML IV ONE (10:26)
--- NOTE | 2018-09-01 10:27 | HOSPPROG ---
Hospitalist Progress Note Assessment/Plan: Kassidy is a 58 y/o female with history of depression and seizures presenting with severe abdominal pain and nausea. She was eating carrots with ranch dressing when she suddenly experienced severe epigastric pain that radiated to her back. She was also nauseous, no vomiting. Abdominal ultrasound reveal cholelithiasis with stones at the neck of the gallbladder measuring 8.7 mm, within the gallbladder, and at the distal aspect of the common bile duct near pancreatic head measuring 5 mm. She had an ERCP performed and developed pancreatitis. First encounter, chart reviewed. # severe pancreatitis post-ERCP - supportive care w fluids and SLACKMAN, antiemetics - abx were started pre-op d/t hypotension in the setting of choledocholithiasis; consider stopping when she improves - lipase trending down - will change fluids to LR #hypotension -giving fluid bolus now -gets very lightheaded when getting oob # cholelithiasis/choledocholithiasis/p ERCP and cholecystectomy #leukocytosis -due to the above # seizure d/o - cont phenytoin # depression - Effexor # dvt ppx - Lovenox #plan: change fluids, and increase rate. Repeat labs in a.m. Subjective: Kassidy is not having as much pain but is lightheaded and gets increase nausea when getting oob. Objective: Vital Signs Temp Pulse Resp BP Pulse Ox 36.5 C 88 16 88/56 L 93 09/01/18 10:00 09/01/18 10:00 09/01/18 10:00 09/01/18 10:00 09/01/18 10:00 Laboratory Results 09/01/18 04:55 09/01/18 04:55 08/31/18 09/01/18 09/02/18 05:59 05:59 05:59 Intake Total 3552 Output Total 500 900 Balance 3052 -900 - Physical Exam Constitutional: uncomfortable, No not in pain Eyes: PERRL Ears, Nose, Mouth, Throat: hearing normal Cardiovascular: regular rate and rhythym Respiratory: no respiratory distress Gastrointestinal: tenderness (slight generalized), No normoactive bowel sounds ( hypoactive) Skin: warm Musculoskeletal: generalized weakness Neurologic: AAOx3 Psychiatric: interacting appropriately 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
[2018-09-01] MEDS: ONDANSETRON DISINTEGRATING 4 MG TAB PO PRN (11:03)
[2018-09-01] MEDS: HYDROmorphONE/DILAUDID 6 MG/30 ML PCA IV PRN (18:55)
[2018-09-01] MEDS: LR 1,000 ML IV SCH (18:56)
[2018-09-01] MEDS ORDERED: FUROSEMIDE 20 MG/2 ML VIAL IVP ONE (20:38)
--- NOTE | 2018-09-01 20:42 | HOSPPROG ---
Hospitalist Progress Note Assessment/Plan: Called on cross cover for increased wob, increased crackles. Ordered chest xray- notable for bilateral infiltrates c/w fluid overload versus bilateral pneumonia. Reviewed I/O's--does not appear to be grossly volume up but given IV lasix x 1. Broadened abx from levo/flagyl to include cefepime as well for broader coverage to include coverage of GN and possible aspiration pna/hcap. Will get blood cultures, sputum cultures and procalcitonin and repeat cxr in am. Objective: Vital Signs Temp Pulse Resp BP Pulse Ox 37.0 C 93 18 101/77 93 09/01/18 19:55 09/01/18 19:55 09/01/18 19:55 09/01/18 19:55 09/01/18 19:55 Laboratory Results 09/01/18 04:55 09/01/18 04:55 08/31/18 09/01/18 09/02/18 05:59 05:59 05:59 Intake Total 3552 Output Total 500 900 400 Balance 3052 -900 -400 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
[2018-09-01] MEDS: CEFEPIME HCL 2 GM in NS 100 ML IV SCH (21:59)
[2018-09-02] MEDS: LR 1,000 ML IV SCH ×2 (00:23→18:34)
[2018-09-02] MEDS ORDERED: FUROSEMIDE 20 MG/2 ML VIAL IVP ONE (03:28)
[2018-09-02] MEDS ORDERED: LORazepam 0.5 MG TAB PO ONE (03:29)
[2018-09-02] MEDS: ALBUTEROL 3 ML DEYVIAL IH PRN (03:33)
[2018-09-02] MEDS ORDERED: IOPAMIDOL (ISOVUE 370) 75 ML BTL IV ONE (04:11)
[2018-09-02 05:12] LABS: PLATELET COUNT 210 10^3/uL (150-400)
[2018-09-02] MEDS: CEFEPIME HCL 2 GM in NS 100 ML IV SCH (05:56)
[2018-09-02] MEDS: ONDANSETRON DISINTEGRATING 4 MG TAB PO PRN (06:35)
[2018-09-02] MEDS: PHENYTOIN SODIUM EXTENDED 100 MG CAP PO SCH (08:56)
[2018-09-02] MEDS: VENLAFAXINE XR 75 MG CAP PO SCH (08:56)
[2018-09-02] MEDS: SENNOSIDES/DOCUSATE SODIUM TAB PO SCH ×2 (08:57→20:05)
[2018-09-02] MEDS: ENOXAPARIN 40 MG/0.4 ML SYR SC SCH (08:57)
[2018-09-02] MEDS: PANTOPRAZOLE SODIUM 40 MG TAB PO SCH ×2 (08:57→20:05)
--- NOTE | 2018-09-02 09:16 | GIREPORT ---
[facility] - Endoscopy Department Patient Name: Kassidy Brown Procedure Date: 08/29/2018 10:12 AM Patient Type: Inpatient Attending MD/ ER Physician: Lc Brannon MD Procedure: ERCP Indications: Common bile duct stone(s), Abdominal pain of suspected biliary origin, Bile duct stone on Ultrasound, Elevated aspartate transaminase (AST) Providers: Lc Brannon MD Medicines: General Anesthesia Complications: No immediate complications. Description of Procedure: After obtaining informed consent, the scope was passed under direct vis ion. Throughout the procedure, the patient's blood pressure, pulse, and oxyg en saturations were monitored continuously. The Duodenalscope was introduc ed through the mouth, and advanced to the duodenum and used to inject cont rast into the bile duct. The ERCP was accomplished without difficulty. The patient tolerated the procedure well. Findings: The esophagus was successfully intubated under direct vision. The scope was advanced to a normal major papilla in the descending duodenum without detailed examination of the pharynx, larynx and associated structures, and upper GI tract. The upper GI tract was grossly normal. A long 0.035 inc h Soft Jagwire was passed into the ventral pancreatic duct. A 0.035 inch x 450 cm straight Hydra Jagwire passed successfully into the right and left intrahepatic branches, but not the right or left hepatic ducts. An 8 mm biliary sphincterotomy was made with a traction (standard) sphincteroto me using ERBE electrocautery. There was no post-sphincterotomy bleeding. T he common bile duct contained one stone, which was 4 mm in diameter. The biliary tree was swept with a 15 mm balloon starting at the bifurcation . Debris was swept from the duct. Nothing was found. Estimated Blood Loss: Estimated blood loss: none. Post Op Diagnosis: - Choledocholithiasis was found. - A biliary sphincterotomy was performed. - Complete removal was accomplished by sweeping. Debris and stone mater ial were removed. - The biliary tree was swept and debris and nothing were found. Recommendation: - Refer to a surgeon. Scheduled for cholecystectomy today. - Check liver enzymes (AST, ALT, alkaline phosphatase, bilirubin) in th e morning. - Thank you for allowing me to participate in the care of your patient. Attending Participation: I personally performed the entire procedure. Lc Brannon MD Lc Brannon MD 08/29/2018 12:40:29 PM This report has been signed electronicallyStbenigno Brannon MD Number of Addenda: 0 Note Initiated On: 08/29/2018 10:12 AM [email or web address]
--- NOTE | 2018-09-02 09:36 | HOSPPROG ---
Hospitalist Progress Note Assessment/Plan: Kassidy is a 58 y/o female with history of depression and seizures presenting with severe abdominal pain and nausea. She was eating carrots with ranch dressing when she suddenly experienced severe epigastric pain that radiated to her back. She was also nauseous, no vomiting. Abdominal ultrasound reveal cholelithiasis with stones at the neck of the gallbladder measuring 8.7 mm, within the gallbladder, and at the distal aspect of the common bile duct near pancreatic head measuring 5 mm. She had an ERCP performed and developed pancreatitis. # severe pancreatitis post-ERCP - supportive care w fluids and CABLE PULLER, antiemetics - abx were started pre-op d/t hypotension in the setting of choledocholithiasis; consider stopping when she improves - lipase improved - LR for fluids -pain is better today, will start clear liquids #right sided pleural effusion -reviewed CTA with Dr Pavon -will get a Thoracentesis (diagnostic and fluid removal) -asked Dr Garcia to get involved w her care -dc Cefepime w a stable procalcitonin, wbc trending down #hypotension -ongoing -gets very lightheaded when getting oob -has received several fluid bolus duing her stay # cholelithiasis/choledocholithiasis/p ERCP and cholecystectomy #leukocytosis -due to the above # seizure d/o - cont phenytoin # depression - Effexor # dvt ppx - Lovenox #plan: Thoracentesis today, Dr Garcia to see. Subjective: Kassidy was having chest pain last night mainly on right side and worse w breathing, abdominal pain is better today. Objective: Vital Signs Temp Pulse Resp BP Pulse Ox 36.6 C 80 16 96/63 L 96 09/02/18 08:00 09/02/18 08:00 09/02/18 08:00 09/02/18 08:00 09/02/18 08:00 Laboratory Results 09/02/18 04:52 09/02/18 04:52 09/01/18 09/02/18 09/03/18 05:59 05:59 05:59 Output Total 900 3200 Balance -900 -3200 - Physical Exam Constitutional: uncomfortable Eyes: PERRL Ears, Nose, Mouth, Throat: hearing normal Cardiovascular: regular rate and rhythym Respiratory: other (very few breath sounds on the right, decreased on the left) Gastrointestinal: soft, non-tender abdomen Skin: warm Musculoskeletal: generalized weakness Psychiatric: anxious 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
--- NOTE | 2018-09-02 09:57 | SOAPPROG ---
LUCINDA Progress Note Assessment/Plan: Assessment: 58yo F s/p ERCP, lap stepan now c ERCP pancreatitis. - increased O2 reqs - CT chest yesterday, poss pna, large R effusion - abdomen is soft, she denies abd pain. Ok for clears - large effusion, thora today Plan: 08/28/18 19:23 09/01/18 08:34 09/02/18 09:55 Subjective: tired, mentally slow Objective: Vital Signs Temp Pulse Resp BP Pulse Ox 36.6 C 80 16 96/63 L 96 09/02/18 08:00 09/02/18 08:00 09/02/18 08:00 09/02/18 08:00 09/02/18 08:00 Laboratory Results 09/02/18 04:52 09/02/18 04:52 09/01/18 09/02/18 09/03/18 05:59 05:59 05:59 Output Total 900 3200 Balance -900 -3200 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
[2018-09-02] MEDS ORDERED: LIDOCAINE 1% 300 MG/30 ML SDV ONE (12:20)
--- NOTE | 2018-09-02 14:19 | SOAPPROG ---
SOAP Progress Note Assessment/Plan: Assessment: Pancreatitis slowly improving states abdominal pain has resolved Pt s/p thoracentesis now with shoulder pain post tap plan Chest film post thoracentesis Consider trial of clear liquids if CXR OK IVF per hospitalist 09/02/18 14:15 Subjective: CC pancreatitis Pt c/o significant shoulder pain post chest tap. States abd pain resolved Objective: Vital Signs Temp Pulse Resp BP Pulse Ox 36.6 C 84 16 94/65 L 95 09/02/18 11:01 09/02/18 11:01 09/02/18 11:01 09/02/18 11:01 09/02/18 11:01 Laboratory Results 09/02/18 04:52 09/02/18 04:52 09/01/18 09/02/18 09/03/18 05:59 05:59 05:59 Output Total 900 3200 700 Balance -900 -3200 -700 Physical Exam - Physical Exam General Appearance: mild distress Respiratory: decreased breath sounds Cardiac/Chest: regular rate, rhythm Abdomen: non-tender, soft 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
[2018-09-02] MEDS ORDERED: PROTOCOL POTASSIUM 1 DOSE MISC PRN (14:49)
[2018-09-02] MEDS ORDERED: KETOROLAC 30 MG/1 ML SDV IVP ONE (15:57)
[2018-09-02] MEDS ORDERED: ZOLPIDEM TARTRATE 5 MG TAB PO PRN (15:59)
--- NOTE | 2018-09-02 16:49 | GCON ---
A PULMONARY/CRITICAL CARE CONSULTATION DATE OF CONSULTATION: 09/02/2018 REFERRING PHYSICIAN: Bebe Best NP REASON FOR REFERRAL: Evaluation and management of pleural effusion, hypoxemia, dyspnea and chest pain. HISTORY: The patient is a 58-year-old woman who was in her usual state of good health when she was admitted on August 28 with complaint of severe colicky abdominal pain. She was found to have cholelithiasis with an impacted stone. She underwent ERCP with extraction of the stone the next day, followed by a cholecystectomy. Both procedures were apparently unremarkable. Postoperatively , she reported severe pain and nausea and also had hypotension. She was found to have pancreatitis with a lipase over 20,000. She was treated with IV fluids as well as pain control. She and her reports that she had significant pain and had difficulty sleeping, as well as some confusion. Yesterday, she had some dyspnea, but this markedly increased yesterday. She felt that she had gurgling in her chest and also had difficulty taking a breath , so her breathing was very shallow and she felt quite short of breath. She was also having some upper back/shoulder pain on the right. She was assessed last evening and given some Lasix. This morning, a CAT scan was done and showed pleural effusion. She had a thoracentesis and reports that she had quite severe pain which she attributed to the muscles of her upper back/neck. The pain was somewhat pleuritic but that was not the predominant character of the pain. It is not particularly made worse with movement. She reports that this pain was quite severe and was quite distressing today, and although it persists, currently she was actually able to fall asleep shortly before my visit , which is the 1st time she thinks she has slept any significant amount of time in the last few days. She admits to being somewhat more confused than normal, and her has also noticed this. She has not had a significant sputum production. PAST MEDICAL HISTORY: 1. Depression. 2. Seizures. 3. Right foot lymphedema. MEDICATIONS: Phenytoin, sumatriptan, venlafaxine. ALLERGIES: Penicillins. SOCIAL HISTORY: The patient [place] in the area. 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 She denies smoking and rarely drinks alcohol. FAMILY HISTORY: Unremarkable. REVIEW OF SYSTEMS: A 10-point review of systems adds nothing to the history of present illness. PHYSICAL EXAMINATION: GENERAL: The patient is somnolent but arousable. She is a bit confused/lethargic. VITAL SIGNS: Blood pressure is 115/77, up from a systolic of 94/65 earlier today. Her heart rate is 86. Her oxygen saturations are 94% on 4 L. HEENT: Normocephalic and atraumatic. No icterus neck no JVD. Trachea is midline. CHEST: She has decreased breath sounds and some rales in both bases. CARDIAC: Regular rate and rhythm without murmur. ABDOMEN: Soft and nontender. Bowel sounds are present. EXTREMITIES: No clubbing, cyanosis, or edema. NEURO: The patient is somnolent but arousable. She has no gross motor or sensory deficits. MUSCULOSKELETAL: I cannot reproduce the pain in the right upper back with palpation of the muscles in the area. LABORATORY: White blood count is 13.9, down from 20.8 two days ago. Hemoglobin is 11.9. Chemistry group is remarkable for a potassium of 3.3 and a creatinine 0.4. Lipase is 1307, down from greater than 20,000 on August 30. A BNP is 868. An LDH is 484. Procalcitonin is 0.07. Pleural LDH is 962, and a pleural glucose is 81. A CT scan of the chest demonstrates a large right and small to moderate left pleural effusion with fairly extensive compressive atelectasis. Air bronchograms are seen through most of the consolidated/ edematous lung. The postprocedure chest x-ray shows improvement in the right basilar opacity seen on prior x-rays, but the diaphragm is still elevated. Images reviewed by me. ASSESSMENT: 1. Pleural effusion with compressive atelectasis. I think this is likely due to the patient's pancreatitis. She has had a 700 cc thoracentesis which has afforded her symptomatic improvement in regard to her dyspnea, although she has significant chest pain that is worse since the procedure. She feels she is able to take deeper breaths and her breathing is not as labored. I think the effusions are likely due to edema and the atelectatic/edematous lung is likely due to compression as well as possibly some noncardiogenic edema due to the pancreatitis. I would expect these to improve with the thoracentesis and also the improved pancreatitis. 2. Chest pain. Although the patient feels that this is muscular, I am not able to identify any muscles that are causing it. It could be due to pancreatitis directly, although I would expect this to be improving as the pancreatitis improves. Although, it does not have a strictly pleuritic character to it, I think it is likely due to pleural inflammation related to the exudative effusion as well as the thoracentesis. 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 3. Pancreatitis. This appears to be improving fairly quickly as reflected in the quickly falling lipase as well as reduced white blood count. Her abdominal exam is quite benign, which is different than it has been as recently as this morning, when she had significant tenderness. She has not had other sequelae such as acute kidney injury or hypocalcemia. 4. Insomnia. The patient reports having quite a bit of difficulty sleeping related to her pain, some anxiety regarding procedures, and dyspnea. She does not have an underlying history of insomnia. RECOMMENDATIONS: 1. Trial of Toradol to help with chest pain. We will need to watch her creatinine, but I do not think it is likely to cause a problem, given that her pancreatitis is improving and her creatinine has remained low. 2. Repeat potassium and replace as necessary. 3. Melatonin and Ambien for insomnia. 4. Try a long-acting oral pain medication at bedtime to help control her pain overnight, so she can sleep. 5. No change in current fluid management. 6. Repeat chemistry group, lipase and CBC in the morning. /[id number]/MODL MTDD
[2018-09-02] MEDS ORDERED: HYDROmorphONE/DILAUDID 1 MG/ML INJ IVP PRN (17:38)
[2018-09-02] MEDS: KETOROLAC 15 MG/1 ML SDV IVP SCH (17:45)
[2018-09-02] MEDS: POTASSIUM Cl (KCl) 100 ML IV SCH ×3 (18:35→21:10)
[2018-09-02] MEDS: MELATONIN 3 MG TAB PO SCH ×2 (20:05)
[2018-09-03] MEDS: KETOROLAC 15 MG/1 ML SDV IVP SCH ×5 (00:31→23:33)
[2018-09-03] MEDS: VENLAFAXINE XR 75 MG CAP PO SCH (08:09)
[2018-09-03] MEDS: PANTOPRAZOLE SODIUM 40 MG TAB PO SCH ×2 (08:10→21:32)
[2018-09-03] MEDS: PHENYTOIN SODIUM EXTENDED 100 MG CAP PO SCH (08:10)
[2018-09-03] MEDS: SENNOSIDES/DOCUSATE SODIUM TAB PO SCH ×2 (08:10→21:32)
[2018-09-03] MEDS: ENOXAPARIN 40 MG/0.4 ML SYR SC SCH (08:11)
--- NOTE | 2018-09-03 09:20 | SOAPPROG ---
SOAP Progress Note Assessment/Plan: Assessment/Plan: 58yo F s/p ERCP, lap stepan now c ERCP pancreatitis. Pleural effusion. S/p thoracentesis, 700cc. Breathing markedly improved. Pancreatitis. Lipase normalized today. Patient feeling better. Will start low fat diet. Wounds intact. S: occasional sharp back pain. breathing is better. no deep abdominal pain. some incisional soreness. no n/v. passing some gas. O: alert, nad no wob rrr abd soft, +BS, appropriately tender 09/03/18 09:17 Objective: Vital Signs Temp Pulse Resp BP Pulse Ox 36.8 C 73 18 112/77 95 09/03/18 07:16 09/03/18 07:16 09/03/18 07:16 09/03/18 07:16 09/03/18 07:16 Microbiology 09/02/18 13:50 Gram Stain - Final Thoracic Fluid - Aspirate Laboratory Results 09/02/18 04:52 09/03/18 05:36 09/02/18 09/03/18 09/04/18 05:59 05:59 05:59 Intake Total 3081 Output Total 3200 700 Balance -3200 2381 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
--- NOTE | 2018-09-03 10:30 | SOAPPROG ---
SOAP Progress Note Assessment/Plan: Assessment: Pancreatitis slowly improving states abdominal pain has resolved Pt s/p thoracentesis now with shoulder pain post tap plan Chest film post thoracentesis Consider trial of clear liquids if CXR OK IVF per hospitalist 09/02/18 14:15 09/03/18 10:28 Pancreatitis lipase normal had back pain after walking today but overall much better Agree with advance diet Consider CT scan of abdomen if back pain persists Subjective: CC back pain Overall much better except for back pain after walking today Objective: Vital Signs Temp Pulse Resp BP Pulse Ox 36.8 C 73 18 112/77 95 09/03/18 07:16 09/03/18 07:16 09/03/18 07:16 09/03/18 07:16 09/03/18 07:16 Microbiology 09/02/18 13:50 Gram Stain - Final Thoracic Fluid - Aspirate Laboratory Results 09/02/18 04:52 09/03/18 05:36 09/02/18 09/03/18 09/04/18 05:59 05:59 05:59 Intake Total 3081 Output Total 3200 700 Balance -3200 2381 Physical Exam - Physical Exam General Appearance: no apparent distress Respiratory: normal breath sounds Cardiac/Chest: regular rate, rhythm Abdomen: non-tender, soft 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
--- NOTE | 2018-09-03 11:51 | HOSPPROG ---
Hospitalist Progress Note Assessment/Plan: Kassidy is a 58 y/o female with history of depression and seizures presenting with severe abdominal pain and nausea. She was eating carrots with ranch dressing when she suddenly experienced severe epigastric pain that radiated to her back. She was also nauseous, no vomiting. Abdominal ultrasound reveal cholelithiasis with stones at the neck of the gallbladder measuring 8.7 mm, within the gallbladder, and at the distal aspect of the common bile duct near pancreatic head measuring 5 mm. # severe pancreatitis post-ERCP - resolved, lipase is stable -low fat diet, no further abdominal pain #right sided pleural effusion -s/p thoracentesis, 700 ml removed, exudative -having pain where procedure was performed, skin site clear -describes it as a spasm-trial of Robaxin -get a chest x ray for further evaluation #hypotension -resolved #insomnia -meds ordered # cholelithiasis/choledocholithiasis/p ERCP and cholecystectomy #leukocytosis -due to the above # seizure d/o - cont phenytoin # depression - Effexor # dvt ppx - Lovenox #plan: get a chest x ray for f/u of effusion and to evaluate any other etiology of pain. Subjective: Kassidy is feeling much better today except for some upper back pain on the right side. Objective: Vital Signs Temp Pulse Resp BP Pulse Ox 36.8 C 73 18 112/77 95 09/03/18 07:16 09/03/18 07:16 09/03/18 07:16 09/03/18 07:16 09/03/18 07:16 Microbiology 09/02/18 13:50 Gram Stain - Final Thoracic Fluid - Aspirate Laboratory Results 09/02/18 04:52 09/03/18 05:36 09/02/18 09/03/18 09/04/18 05:59 05:59 05:59 Intake Total 3081 Output Total 3200 700 Balance -3200 2381 - Physical Exam Constitutional: uncomfortable Eyes: PERRL Ears, Nose, Mouth, Throat: hearing normal Cardiovascular: regular rate and rhythym Respiratory: no respiratory distress, reduced air movement (throughout the right lung, diminished on left side) Gastrointestinal: soft, non-tender abdomen Skin: warm Musculoskeletal: full muscle strength Neurologic: AAOx3 Psychiatric: interacting appropriately 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
[2018-09-03] MEDS: POTASSIUM Cl (KCl) 100 ML IV SCH ×3 (12:03→18:41)
[2018-09-03] MEDS ORDERED: FUROSEMIDE 20 MG/2 ML VIAL IVP ONE (13:22)
[2018-09-03] MEDS ORDERED: CANN-EASE 2 GM TUBE TP PRN (13:28)
--- NOTE | 2018-09-03 13:28 | PDINTPN ---
Hand Polisher Progress Note Assessment/Plan: Assessment: Pleural effusion: Likely due to pancreatitis. Status post drainage on the right. Symptomatically improved, but still requiring supplemental oxygen. She continues to have significant pain at the thoracentesis site. Pulmonary infiltrates: Likely due to compressive atelectasis as well as possible ARDS due to pancreatitis. Pancreatitis: Resolved enzymatically and she is no longer tender. Epistaxis: Current resolved, likely due to nasal dryness Plan: Dose of Lasix. Follow-up potassium. Nasal lubricant/saline to help with epistaxis. Check chest x-ray to exclude pneumothorax or other complication of the thoracentesis. 09/03/18 13:25 Subjective: The patient slept better last night. Her abdominal pain is resolved. She continues to complain of spasmodic pain in her back near the area of the thoracentesis. Denies shortness of breath. Currently has a nose bleed she attributes to a dry nose. Objective: Vital Signs Temp Pulse Resp BP Pulse Ox 36.8 C 73 18 112/77 95 09/03/18 07:16 09/03/18 07:16 09/03/18 07:16 09/03/18 07:16 09/03/18 07:16 Microbiology 09/02/18 13:50 Gram Stain - Final Thoracic Fluid - Aspirate Laboratory Results 09/02/18 04:52 09/03/18 05:36 09/02/18 09/03/18 09/04/18 05:59 05:59 05:59 Intake Total 3081 Output Total 3200 700 Balance -3200 2381 Physical Exam - Physical Exam General Appearance: alert EENT: normal ENT inspection Respiratory: lungs clear, normal breath sounds Cardiac/Chest: regular rate, rhythm, No edema Abdomen: normal bowel sounds, non-tender Skin: normal color, warm/dry Extremities: normal inspection Neuro/Psych: alert, normal mood/affect, oriented x 3 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
--- NOTE | 2018-09-03 14:36 | ASMTCMCOM ---
CM Note CM Note Notes: Pts case discussed w/ Bebe Best NP. Pt will d/c independent when medically stable. CM available for changes. Plan: Independent Date Signed: 09/03/2018 02:35 PM Electronically Signed By:LESA Everett
[2018-09-03] MEDS: oxyCODONE IR 5 MG TAB PO PRN ×2 (16:45→23:03)
[2018-09-03] MEDS: METHOCARBAMOL 750 MG TAB PO PRN (16:46)
[2018-09-03] MEDS ORDERED: POTASSIUM CL 10 MEQ TAB PO ONE (20:53)
[2018-09-03] MEDS: MELATONIN 3 MG TAB PO SCH (21:31)
[2018-09-04] MEDS: oxyCODONE IR 5 MG TAB PO PRN (02:45)
[2018-09-04] MEDS: KETOROLAC 15 MG/1 ML SDV IVP SCH ×4 (06:32→23:54)
[2018-09-04] MEDS: PHENYTOIN SODIUM EXTENDED 100 MG CAP PO SCH (09:30)
[2018-09-04] MEDS: PANTOPRAZOLE SODIUM 40 MG TAB PO SCH ×2 (09:30→21:45)
[2018-09-04] MEDS: VENLAFAXINE XR 75 MG CAP PO SCH (09:30)
[2018-09-04] MEDS: SENNOSIDES/DOCUSATE SODIUM TAB PO SCH ×2 (09:30→21:46)
[2018-09-04] MEDS: ENOXAPARIN 40 MG/0.4 ML SYR SC SCH (09:33)
--- NOTE | 2018-09-04 10:27 | SOAPPROG ---
SOAP Progress Note Assessment/Plan: Assessment/Plan: 58yo F s/p ERCP, lap stepan now c ERCP pancreatitis. Pleural effusion. S/p thoracentesis, 700cc. Breathing improved. Sating at 94% on 2L. Pt may need to be d/c'ed on O2 Pancreatitis. Lipase normal. Tolerating low fat diet. Hypokalemia. K up to 4.0 today S: Feeling much better today. Tolerating low fat diet. Passing gas and had BM. Denies n/v. Does endorse "spasm" at thoracentesis site. Toradol helping. O: Alert Afebrile VSS O2 sat improving. RRR No increased WOB. Thoracentesis site cdi. Abdomen: soft, appropriately ttp, +BS, incision sites cdi Pt seen with Dr. Pavon. 09/04/18 10:23 Objective: Vital Signs Temp Pulse Resp BP Pulse Ox 36.8 C 75 16 109/85 H 94 09/04/18 08:00 09/04/18 08:00 09/04/18 08:00 09/04/18 08:00 09/04/18 08:00 Microbiology 09/02/18 13:50 Gram Stain - Final Thoracic Fluid - Aspirate Laboratory Results 09/02/18 04:52 09/04/18 05:10 09/03/18 09/04/18 09/05/18 05:59 05:59 05:59 Intake Total 3081 450 Output Total 700 1600 700 Balance 2381 -1150 -700 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
--- NOTE | 2018-09-04 10:29 | HOSPPROG ---
Hospitalist Progress Note Assessment/Plan: # severe pancreatitis post-ERCP - eating today, much improved # large R sided exudative pleural effusion s/p thoracentesis - suspect d/t inflammation from severe pancreatitis - recheck CXR tomorrow # AHRF - better but still on O2 # back pain after thora - site looks ok and CXR without ptx # cholelithiasis/choledocholithiasis/p ERCP and cholecystectomy # hypotension - resolved # seizure d/o - cont phenytoin # depression - effexor # debility - cont PT/OT # dvt ppx - lovenox Subjective: still with back pain; had a BM Objective: Vital Signs Temp Pulse Resp BP Pulse Ox 36.8 C 75 16 109/85 H 94 09/04/18 08:00 09/04/18 08:00 09/04/18 08:00 09/04/18 08:00 09/04/18 08:00 Microbiology 09/02/18 13:50 Gram Stain - Final Thoracic Fluid - Aspirate Laboratory Results 09/02/18 04:52 09/04/18 05:10 09/03/18 09/04/18 09/05/18 05:59 05:59 05:59 Intake Total 3081 450 Output Total 700 1600 700 Balance 3436 -1790 -[address] Pavon CXR personally reviewed - Physical Exam Constitutional: uncomfortable Cardiovascular: regular rate and rhythym, no murmur, rub, or gallop Respiratory: no respiratory distress, no rales or rhonchi, clear to auscultation Gastrointestinal: soft, non-tender abdomen, no palpable masses 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
[2018-09-04] MEDS: METHOCARBAMOL 750 MG TAB PO PRN (10:40)
--- NOTE | 2018-09-04 10:43 | SOAPPROG ---
SOAP Progress Note Assessment/Plan: Assessment: Pancreatitis slowly improving states abdominal pain has resolved Pt s/p thoracentesis now with shoulder pain post tap plan Chest film post thoracentesis Consider trial of clear liquids if CXR OK IVF per hospitalist 09/02/18 14:15 09/03/18 10:28 Pancreatitis lipase normal had back pain after walking today but overall much better Agree with advance diet Consider CT scan of abdomen if back pain persists 09/04/18 10:41 Pancreatitis clinically much better Back pain continues suspect muscular but recommend CT scan of pancreas to r/o fluid collection or complication that could be cause of back pain Subjective: CC back pain Pt tolerated po well but still with significant back pain Objective: Vital Signs Temp Pulse Resp BP Pulse Ox 36.8 C 75 16 109/85 H 94 09/04/18 08:00 09/04/18 08:00 09/04/18 08:00 09/04/18 08:00 09/04/18 08:00 Microbiology 09/02/18 13:50 Gram Stain - Final Thoracic Fluid - Aspirate Laboratory Results 09/02/18 04:52 09/04/18 05:10 09/03/18 09/04/18 09/05/18 05:59 05:59 05:59 Intake Total 3081 450 Output Total 700 1600 700 Balance 3551 -4688 -811 Physical Exam - Physical Exam General Appearance: alert Respiratory: lungs clear Cardiac/Chest: regular rate, rhythm Abdomen: non-tender, soft 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
[2018-09-04] MEDS: ALBUTEROL 3 ML DEYVIAL IH PRN ×2 (10:55→16:10)
[2018-09-04] MEDS ORDERED: IOPAMIDOL (ISOVUE 370) 100 ML BTL IV ONE (12:46)
[2018-09-04] MEDS ORDERED: FUROSEMIDE 20 MG/2 ML VIAL IVP ONE (15:07)
--- NOTE | 2018-09-04 15:07 | PDINTPN ---
Maintenance Person Progress Note Assessment/Plan: Assessment: Pleural effusions: Likely due to pancreatitis. Status post drainage on the right. Symptomatically improved, but still requiring supplemental oxygen. She continues to have significant spasms of pain at the thoracentesis site. Pulmonary infiltrates: Likely due to compressive atelectasis as well as possible ARDS due to pancreatitis. Doubt pneumonia with falling white blood count and no fever off antibiotics. Pancreatitis: Resolved enzymatically and she is no longer tender. She has a fluid collection that is likely a postoperative seroma or loculated ascites due to her pancreatitis Epistaxis: Current resolved, likely due to nasal dryness Plan: Repeat Lasix. Follow-up potassium. Nasal lubricant/saline to help with epistaxis. Encouraged incentive spirometry and increase activity. Will try EzPAP as well. 09/03/18 13:25 09/04/18 15:05 Subjective: She feels a bit better, appetite improved. Still has spasms of back pain that her unrelated to respiration. She feels she can't take a deep breath. Objective: Vital Signs Temp Pulse Resp BP Pulse Ox 36.8 C 72 18 109/85 H 95 09/04/18 08:00 09/04/18 10:55 09/04/18 10:55 09/04/18 08:00 09/04/18 10:55 Microbiology 09/02/18 13:50 Gram Stain - Final Thoracic Fluid - Aspirate Laboratory Results 09/02/18 04:52 09/04/18 05:10 09/03/18 09/04/18 09/05/18 05:59 05:59 05:59 Intake Total 3081 450 Output Total 700 1600 1200 Balance 2381 -1150 -1200 CT abdomen: 8 cm fluid infra hepatic fluid collection. Small-moderate bilateral pleural effusions with atelectasis of right middle lobe and both lower lobes. Images reviewed by me. Physical Exam - Physical Exam General Appearance: alert, no apparent distress EENT: normal ENT inspection Neck: normal inspection Respiratory: decreased breath sounds (Right base), crackles (Left base) Cardiac/Chest: regular rate, rhythm, No edema Abdomen: normal bowel sounds, non-tender Skin: normal color, warm/dry Extremities: normal inspection Neuro/Psych: alert, normal mood/affect, oriented x 3 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
[2018-09-04 15:33] LABS: PLATELET COUNT 269 10^3/uL (150-400)
[2018-09-04] MEDS ORDERED: POTASSIUM CL 10 MEQ TAB PO ONE (19:09)
[2018-09-04] MEDS: MELATONIN 3 MG TAB PO SCH (21:45)
[2018-09-05 05:36] LABS: PLATELET COUNT 310 10^3/uL (150-400)
[2018-09-05] MEDS: KETOROLAC 15 MG/1 ML SDV IVP SCH ×4 (06:58→20:26)
[2018-09-05] MEDS: ENOXAPARIN 40 MG/0.4 ML SYR SC SCH (08:14)
[2018-09-05] MEDS: VENLAFAXINE XR 75 MG CAP PO SCH (08:14)
[2018-09-05] MEDS: PANTOPRAZOLE SODIUM 40 MG TAB PO SCH ×2 (08:14→21:42)
[2018-09-05] MEDS: PHENYTOIN SODIUM EXTENDED 100 MG CAP PO SCH (08:14)
[2018-09-05] MEDS: SENNOSIDES/DOCUSATE SODIUM TAB PO SCH ×2 (08:18→21:48)
--- NOTE | 2018-09-05 09:41 | SOAPPROG ---
LUCINDA Progress Note Assessment/Plan: Assessment: 58yo F s/p ERCP, lap stepan now c ERCP pancreatitis. - off O2!, still needs aggressive pulm toilet - abdomen is soft, ND, really nontender. CT reviewed. There is a small fluid collection in fossa, doubt bile leak but will get HIDA to def r/o. Cont reg diet - has made a lot of progress over the last day. - of HIDA neg, plan for dc tomorrow. Plan: 08/28/18 19:23 09/01/18 08:34 09/02/18 09:55 09/05/18 09:40 Subjective: feels great, tolerating diet, no pain Objective: Vital Signs Temp Pulse Resp BP Pulse Ox 36.7 C 63 16 108/73 93 09/05/18 07:47 09/05/18 07:47 09/05/18 07:47 09/05/18 07:47 09/05/18 07:47 Microbiology 09/02/18 13:50 Gram Stain - Final Thoracic Fluid - Aspirate Laboratory Results 09/05/18 05:23 09/05/18 05:23 09/04/18 09/05/18 09/06/18 05:59 05:59 05:59 Intake Total 450 Output Total 1600 1200 Balance -1150 -1200 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
--- NOTE | 2018-09-05 11:50 | SOAPPROG ---
SOAP Progress Note Assessment/Plan: Assessment: Pancreatitis slowly improving states abdominal pain has resolved Pt s/p thoracentesis now with shoulder pain post tap plan Chest film post thoracentesis Consider trial of clear liquids if CXR OK IVF per hospitalist 09/02/18 14:15 09/03/18 10:28 Pancreatitis lipase normal had back pain after walking today but overall much better Agree with advance diet Consider CT scan of abdomen if back pain persists 09/04/18 10:41 Pancreatitis clinically much better Back pain continues suspect muscular but recommend CT scan of pancreas to r/o fluid collection or complication that could be cause of back pain 09/05/18 11:48 Pancreatitis clinically resolved Back pain better Abnormal CT scan with fluid collection in GB fossa doubt leak Plan Await HIDA Likely home tomorrow if HIDA negative Subjective: CC and pain Felling much better Objective: Vital Signs Temp Pulse Resp BP Pulse Ox 36.7 C 63 16 108/73 93 09/05/18 07:47 09/05/18 07:47 09/05/18 07:47 09/05/18 07:47 09/05/18 07:47 Microbiology 09/02/18 13:50 Gram Stain - Final Thoracic Fluid - Aspirate Laboratory Results 09/05/18 05:23 09/05/18 05:23 09/04/18 09/05/18 09/06/18 05:59 05:59 05:59 Intake Total 450 Output Total 1600 1200 Balance -1150 -1200 Physical Exam - Physical Exam General Appearance: no apparent distress Respiratory: lungs clear Cardiac/Chest: regular rate, rhythm Abdomen: non-tender, soft 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
--- NOTE | 2018-09-05 13:00 | HOSPPROG ---
Hospitalist Progress Note Assessment/Plan: 58y female with abd pain. First encounter, chart reviewed. D/W Dr Pavon. # severe pancreatitis post-ERCP - eating today, much improved # large R sided exudative pleural effusion s/p thoracentesis - suspect d/t inflammation from severe pancreatitis - repeat CXR shows slight improvement, personally reviewed. # AHRF - better -on RA # back pain after thora -resolved # cholelithiasis/choledocholithiasis/p ERCP and cholecystectomy -HIDA today -abnormal CT scan # hypotension - resolved # seizure d/o - cont phenytoin # depression - effexor # debility - cont PT/OT # dvt ppx - lovenox #Dispo -possibly 1-2 days if HIDA stable and feeling well. Subjective: Up in the chair. Feeling well. No pain. Objective: Vital Signs Temp Pulse Resp BP Pulse Ox 36.7 C 63 16 108/73 93 09/05/18 07:47 09/05/18 07:47 09/05/18 07:47 09/05/18 07:47 09/05/18 07:47 Microbiology 09/02/18 13:50 Gram Stain - Final Thoracic Fluid - Aspirate Laboratory Results 09/05/18 05:23 09/05/18 05:23 09/04/18 09/05/18 09/06/18 05:59 05:59 05:59 Intake Total 450 Output Total 1600 1200 Balance -1150 -1200 - Physical Exam Constitutional: no apparent distress, appears nourished, not in pain Eyes: PERRL, anicteric sclera, EOMI Ears, Nose, Mouth, Throat: moist mucous membranes, hearing normal, ears appear normal Cardiovascular: regular rate and rhythym, No JVD, No edema Respiratory: no respiratory distress, no rales or rhonchi, reduced air movement Gastrointestinal: normoactive bowel sounds, tenderness, No ascites Skin: warm, normal color, No mottled Musculoskeletal: normal joint ROM, no joint effusions, generalized weakness Neurologic: AAOx3 Psychiatric: interacting appropriately, not anxious, not encephalopathic, thought process linear 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
[2018-09-05] MEDS ORDERED: FUROSEMIDE 20 MG/2 ML VIAL IVP ONE (15:02)
--- NOTE | 2018-09-05 15:50 | PDINTPN ---
[employer] Progress Note Assessment/Plan: Assessment: Pleural effusions: Likely due to pancreatitis. Status post drainage on the right. Still has small-moderate pleural effusions bilaterally. Symptomatically improved, no longer requiring supplemental oxygen. Pulmonary infiltrates: Likely due to compressive atelectasis as well as possible ARDS due to pancreatitis. Doubt pneumonia with falling white blood count and no fever off antibiotics. Saturations now normal on room air. Pancreatitis: Resolved enzymatically and she is no longer tender. She has a fluid collection that is likely a postoperative seroma or loculated ascites due to her pancreatitis Plan: Repeat IV Lasix, changed to p.o. tomorrow, probably continue for another day or 2. Encouraged incentive spirometry and increase activity. Will try EzPAP as well. Okay to discharge tomorrow from pulmonary standpoint if doing well clinically. 09/05/18 15:48 Subjective: Feels better, appetite improved. Back pain significantly less. Increased strength, able to walk around the unit. Objective: Vital Signs Temp Pulse Resp BP Pulse Ox 36.7 C 74 12 108/73 94 09/05/18 07:47 09/05/18 14:27 09/05/18 14:27 09/05/18 07:47 09/05/18 14:27 Microbiology 09/02/18 13:50 Gram Stain - Final Thoracic Fluid - Aspirate Laboratory Results 09/05/18 05:23 09/05/18 05:23 09/04/18 09/05/18 09/06/18 05:59 05:59 05:59 Intake Total 450 Output Total 1600 1200 Balance -1150 -1200 HIDA scan negative Physical Exam - Physical Exam General Appearance: alert, no apparent distress EENT: normal ENT inspection Neck: normal inspection Respiratory: lungs clear, decreased breath sounds (Bases) Cardiac/Chest: regular rate, rhythm, No edema Abdomen: normal bowel sounds, non-tender Skin: normal color, warm/dry Extremities: normal inspection Neuro/Psych: alert, normal mood/affect, oriented x 3 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
[2018-09-05] MEDS: MELATONIN 3 MG TAB PO SCH (21:42)
[2018-09-05] MEDS ORDERED: POTASSIUM CL 10 MEQ TAB PO ONE (21:45)
[2018-09-06] MEDS: KETOROLAC 15 MG/1 ML SDV IVP SCH ×2 (02:42→05:48)
[2018-09-06 08:00] VITALS: BP 117/81
[2018-09-06] MEDS: VENLAFAXINE XR 75 MG CAP PO SCH (08:28)
[2018-09-06] MEDS: PHENYTOIN SODIUM EXTENDED 100 MG CAP PO SCH (08:28)
[2018-09-06] MEDS: PANTOPRAZOLE SODIUM 40 MG TAB PO SCH (08:29)
[2018-09-06] MEDS: ENOXAPARIN 40 MG/0.4 ML SYR SC SCH (08:30)
--- NOTE | 2018-09-06 08:54 | SOAPPROG ---
SOAP Progress Note Assessment/Plan: Assessment: 58yo F s/p ERCP, lap stepan now c ERCP pancreatitis. - continues to do well off O2 - pain is minimal, well controlled on OTCs - HIDA neg for leak - dc Plan: 08/28/18 19:23 09/01/18 08:34 09/02/18 09:55 09/05/18 09:40 09/06/18 08:53 Objective: Vital Signs Temp Pulse Resp BP Pulse Ox 36.8 C 69 14 117/81 H 93 09/06/18 07:59 09/06/18 07:59 09/06/18 07:59 09/06/18 07:59 09/06/18 07:59 Microbiology 09/02/18 13:50 Gram Stain - Final Thoracic Fluid - Aspirate Laboratory Results 09/05/18 05:23 09/06/18 04:51 09/05/18 09/06/18 09/07/18 05:59 05:59 05:59 Intake Total 600 Output Total 1200 Balance -1200 600 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
[2018-09-06] MEDS ORDERED: FUROSEMIDE 20 MG TAB PO SCH (09:00)
[2018-09-06] MEDS: SENNOSIDES/DOCUSATE SODIUM TAB PO SCH (09:37)
--- NOTE | 2018-09-06 16:15 | ASDISCHSUM ---
Discharge Information Plan Status:Home with No Needs Medically Cleared to Leave:09/05/2018 Discharge Date:09/06/2018 11:21 AM CM D/C Disposition:Home, Routine, Self-Care ADT D/C Disposition:Home, Routine, Self-Care Projected Discharge Date:09/06/2018 11:21 AM Transportation at D/C:Family Discharge Delay Reason: Follow-Up Date:09/06/2018 11:21 AM Discharge Slot:2 - 12:01 pm - 18:00 pm Final Diagnosis:CBD stones, s/p ERCP and lap stepan, ERCP pancreatitis, pleural effusions Placement Information Patient Contact Information Contact Name:MICHELLE Relationship:Luciano Address: Home Phone: City: [facility] Phone: [facility]/[employer] Code: Email: Financial Information Financial Class:[email or web address] Primary Plan Desc:[facility] Primary Plan Number:[id number] Secondary Plan Desc: Secondary Plan Number: Assessment Information LACE LACE Length of stay for Answers: 7-13 days current admission Acuity / Level of Answers: Yes Care: Did the patient have an inpatient admission? Comorbidities - select Answers: Other Notes: Hx of seizures all that apply # of Emergency department Answers: 1-2 visits in the last 6 months Social determinants Answers: Mental health diagnosis (anxiety, depression, pers onality disorders, etc.) Score: 13 Date Signed: 09/06/2018 04:14 PM Electronically Signed By:Josette Thompson RN [facility] Progress Note CM Juan Ramon CM Note Notes: Pt admitted to hospital for abdominal pain, imaging revealed gallstones. She will have an ERCP today, pt is otherwise independent. Anticipate she will dc home when medically stable. CM available for any changes. DC Plan: Independent Date Signed: 08/29/2018 02:29 PM Electronically Signed By:Meryl Mendieta RN [facility] CM Progress Note CM Note CM Note Notes: CM reviewed pts chart. Pt continues to be NPO and still feeling very nauseated. The plan remains the same. Pt will d/c independent when medically stable. CM available for changes. Plan: Independent Date Signed: 09/01/2018 09:14 AM Electronically Signed By:LESA Everett [facility] CM Progress Note CM Note CM Note Notes: Pts case discussed w/ Bebe Best NP. Pt will d/c independent when medically stable. CM available for changes. Plan: Independent Date Signed: 09/03/2018 02:35 PM Electronically Signed By:LESA Everett Case Management Discharge Plan Note Case Management Discharge Discharge Order Complete? Answers: Yes Patient to Obtain Answers: Independently Medications Transportation Arranged Answers: Family/Friends Transport will Pick (Date 09/06/2018 12:00 AM & Time) SHANE Complete Answers: No Notes: N/A Case Management Transport Answers: No Notes: N/A Form Complete Faxed Final Orders Answers: No Notes: N/A Agency/Facility Transfer Answers: No Notes: N/A Report Printed & Faxed to Receiving Agency Family Notified Answers: No Notes: Pt to notify Discharge Comments Notes: Reviewed chart. Pt is s/p an ERCP, lap stepan with ERCP pancreatitis and pleural effusions. Pt to discharge home independently today with no identified needs. No IM/STANTON forms signed, not applicable. Pt to follow up as directed. CM available for any further issues or concerns. Discharge Plan: Home independently Date Signed: 09/06/2018 04:14 PM Electronically Signed By:Josette Thompson RN Intervention Information
--- NOTE | 2018-09-06 17:25 | GDS ---
DISCHARGE DIAGNOSES: 1. Severe pancreatitis post endoscopic retrograde cholangiopancreatography. 2. Large, right-sided, exudative pleural effusion. 3. Acute hypoxemic respiratory failure. 4. Choledocholithiasis. 5. Hypotension. 6. History of seizure disorder. 7. History of depression. CONSULTATIONS: 1. Surgery. 2. Pulmonology. 3. Gastroenterology. PHYSICAL EXAM: GENERAL: The patient is alert. VITAL SIGNS: Afebrile at 36.8, pulse 69. Respirato ry rate is 14. Blood pressure is 117/81. She is saturating 93% on room air. I have seen and evalua mono the patient on the day of discharge. HOSPITAL COURSE: The patient is a 58-year-old female who presents with complaints of abdominal pain. She was evaluated and diagnosed with. 1. Severe pancreatitis post ERCP. During this hospitalization, this has resolved. 2. Large, right-sided pleural effusion. She did require a thoracentesis during this hospitalization . Her symptoms have significantly improved. She is diuresing well, and [facility] with [facility] repeat chest x-ray in 7 days. 3. Acute hypoxemic respiratory failure. This is in the setting of a pleural effusion. This has res olved. 4. Choledocholithiasis. The patient did have a cholecystectomy performed during this hospitalizatio n. Her symptoms have completely resolved. She is tolerating a regular diet and has no further pain. 5. Hypotension. This has resolved. 6. History of seizure disorder. Her home medications have been continued with no signs of seizure a ctivity. 7. History of depression. She is stable with home medications. DISPOSITION: She will be discharged home independently. There are no pending studies. DISCHARGE MEDICATIONS: Please refer to EMR form. I provided the patient a prescription for Lasix 20 mg daily, #2; as well as potassium 10 mEq daily, #1; and Protonix 40 mg b.i.d. She will follow up in the outpatient setting with Dr. Jose Alfredo Pavon, as well as her primary care ph ysician in the next week. I spent greater than 35 minutes in the care, coordination, and management of the patient's dispositio n. /[id number]/[id number]
== END 2018-09-06 11:21 | disposition home or self-care (01) | DRG 417 ==
LOC: EDUNIT# → F3E 16:20
PROVIDERS: ADMIT Internal Medicine; ATTEND Internal Medicine
PROC: 0FC98ZZ Extirpation of Matter from Common Bile Duct, Via Natural or Artificial Opening Endoscopic (ICD-10-PCS; 2018-08-29)
PROC: 0FT44ZZ Resection of Gallbladder, Percutaneous Endoscopic Approach (ICD-10-PCS; principal; 2018-08-29 11:00)
PROC: 0W993ZZ Drainage of Right Pleural Cavity, Percutaneous Approach (ICD-10-PCS; 2018-09-02)
DX: K80.64 Calculus of gallbladder and bile duct with chronic cholecystitis without obstruction (principal); K85.90 Acute pancreatitis without necrosis or infection, unspecified; J96.01 Acute respiratory failure with hypoxia; J90 Pleural effusion, not elsewhere classified; G47.00 Insomnia, unspecified; G40.909 Epilepsy, unspecified, not intractable, without status epilepticus; F32.9 Major depressive disorder, single episode, unspecified
CPT/HCPCS: A9537; C1769; J0171; J0692; J1100; J1170; J1650; J1885; J1940; J1956; J2001; J2405; J2550; J2704; J3010; J3480; J7613; Q9967

== ENCOUNTER → 2018-09-12 | Outpatient (CLI) | payer OTHER | LOC: FIMAGING 10:58 | PROVIDERS: ATTEND Family Medicine | DX: J98.11 Atelectasis (principal); R05 Cough ==